=== PATIENT | female | born 1975 | race Caucasian/White ===

== ENCOUNTER → 2017-10-18 07:51 | Day surgery (SDC) | payer MEDICAID, SELFPAY ==
[2017-10-17 12:31] VITALS: BMI 30.4
--- NOTE | 2017-10-18 08:15 | PCM.HP.BLA ---
Problem List (1) Abnormal stress test Status: Acute History and Physical Date of Admission: 10/18/17 Date: 10/18/2017 Update: History of Present Illness Update / Addendum: Pre Cardiac Catheterization For history of present illness, past medical history, family history, social history, review of systems, physical examination, and initial impression and plan, please see the previously dictated outpatient history of present illness by nAdrés Lind M.D., from 10/04/2017. The patient has undergone evaluation with an exercise tolerance test / nuclear imaging study. According to the report an area of myocardial ischemia cannot be excluded. Thus, based upon the patient's history and objective findings, she has been referred for further evaluation with diagnostic cardiac catheterization. The procedure and risks were discussed with her and she grants consent. The cardiac catheterization procedure is scheduled to be performed at [facility] on 10/18/2017. This note was generated with [employer] Dictation software. Every effort was made to ensure accuracy, however, computerized modern and contemporary art curator mistakes may persist.
--- NOTE | 2017-10-18 08:19 | HP.PCM_ITS ---
Problem List (1) Abnormal stress test Status: Acute History and Physical Date of Admission: 10/18/17 Date: 10/18/2017 Update: History of Present Illness Update / Addendum: Pre Cardiac Catheterization For history of present illness, past medical history, family history, social history, review of systems, physical examination, and initial impression and plan, please see the previously dictated outpatient history of present illness by Andrés Lind M.D., from 10/04/2017. The patient has undergone evaluation with an exercise tolerance test / nuclear imaging study. According to the report an area of myocardial ischemia cannot be excluded. Thus, based upon the patient's history and objective findings, she has been referred for further evaluation with diagnostic cardiac catheterization. The procedure and risks were discussed with her and she grants consent. The cardiac catheterization procedure is scheduled to be performed at [facility] on 02/2018. This note was generated with [employer] Dictation software. Every effort was made to ensure accuracy, however, computerized clinical staff rn mistakes may persist.
--- NOTE | 2017-10-19 10:49 | CL.D_ITS ---
Patient Name: THUY DELCID Study Date: 10/18/2017 Performing: Jarad Leach MD Ht: 64.17 inches 163 cm : 1975 Wt: 176.37 lbs 80 kg Age: 42 Gender: female BSA: 1.86 PROCEDURE(S) PERFORMED SO87-ESX/COR/LV CLINICAL PROFILE AND INDICATIONS INDICATIONS: Shortness of Breath Stress/Imaging Stress Test w/SPECT MPI: Yes Result: IndeterminantStress Test with SPECT MPI: Inde terminant Angina Classification Anginal Classification w/in 2 Weeks: CCS III CAD Presentations: Other: Shortness of Breath CONCLUSIONS Elevated Left Ventricular End Diastolic Pressure Normal LV size, wall motion,and systolic function LVEF: by LV gram 60 % Normal coronary arteries Cardiac Rhythm: sinus rhythm with intermittent narrow QRS and intermittent wide QRS appearing c/w a r ate related bundle branch block phenomenon RECOMMENDATIONS Risk factor modification Medical therapy Follow up with primary employee relations representative (Andrés Lind MD) DESCRIPTION OF PROCEDURE The patient arrived to the procedure lab. The risks and benefits of the procedure as well as a full d escription of our services here and current unavailability of surgical backup were fully explained to the patient and/or their significant other prior to the catheterization. The Timeout was completed, verifying the correct patient and procedure. The patient's procedural site was prepped and draped in the usual fashion. Local anesthetic was given subcutaneously to right groin region with Lidocaine 2%. Using a modified Seldinger technique, arterial access was obtained via the right femoral artery, a 4 Fr sheath was inserted Left Coronary Artery selective angiography was performed in multiple views us ing a 4 Fr. JL5 catheter. Right Coronary Artery selective angiography was then performed in multiple views using a 4 Fr. 3DRC catheter. Left Ventriculography was performed in BAILON projection using a 4 Fr . Pigtail catheter. LV to AO pullback pressures were then recorded.The arterial sheath was pulled and manual compression applied until hemostasis is achieved. CORONARY ANGIOGRAPHY DOMINANCE: Co- Dominant LEFT HEART ASSESSMENT Left Ventricular Ejection Fraction: by LV Gram 60 % Normal LV wall motion Elevated Left Ventricular End Diastolic Pressure LVEDP: 20 mmHg LEFT MAIN: Angiographically normal LEFT ANTERIOR DECENDING ARTERY: Angiographically normal CIRCUMFLEX ARTERY: Angiographically normal RIGHT CORONARY ARTERY: Angiographically normal VALVE FINDINGS: Normal Aortic Valve function Normal Mitral Valve function AORTIC ROOT: Angiographically normal COMPLICATIONS No Complications PROCEDURE MEDICATIONS Versed 1 mg IV Versed 1 mg IV Baby Aspirin (81mg) 4 Tabs PO @ 10/18/2017 08:33:42 SUMMARY OF HEMODYNAMIC DATA Time AIR REST ECG 08:32:36 AO 116/81 (97) SA 09:34:01 LV 133/6, 26 09:40:03 LV 131/3, 20 09:40:11 LV 126/4, 21 09:41:06 LVp 130/4, 23 09:41:12 AOp 133/82 (104) 09:41:17 ECG 09:42:18 ECG 10:03:09 Signed By Jarad Leach MD On 10/18/2017 10:12:33 Jarad Leach MD
== END ==
PROVIDERS: Family Provider Family Medicine; PCP Family Medicine; Visit Provider Internal Medicine Cardiovascular Disease
DX: R94.39 Abnormal result of other cardiovascular function study (principal); I44.7 Left bundle-branch block, unspecified; I42.9 Cardiomyopathy, unspecified; Z72.0 Tobacco use; Z82.49 Family history of ischemic heart disease and other diseases of the circulatory system
CPT/HCPCS: 93458; 99152; 99153; J7040; C1769; C1894; Q9967

== ENCOUNTER 2022-09-24 10:05 | Emergency (ER) | payer SELFPAY ==
[2022-09-24 10:07] VITALS: BP 130/71; PULSE 95; RESP 17; TEMP 36.6; O2SAT 99; BMI 30.1
--- NOTE | 2022-09-24 10:38 | EDS_ITS ---
HPI History of Present Illness Chief Complaint: Abscess Informant: patient Onset/Context/Timing Onset: Days (4) Context: Gradual Onset Timing: Continuous Quality: Throbbing Location: Left posterior earlobe Worsened by: Palpation Relieved by: Heat Narrative Narrative: Patient presents with an abscess to her left earlobe that has been getting worse over the last 4 days. Patient states she was prescribed doxycycline. Patient states this is not helping. Patient describes her pain as throbbing. Patient states it is constant. Patient states it is worse whenever she touches the area. Patient denies any discharge or drainage. Patient denies any fevers or chills. Patient has a headache due to the abscess. Prior similar symptoms: Yes PFSH [facility] Medical History (Updated 09/24/22 @ 12:[address] Dimitris Eaton, DO) Bartholin's gland abscess Home Medications albuterol sulfate 90 mcg/actuation aerosol inhaler (ProAir HFA) 2 puff inhalation Q6H 10/11/17 [History Last Taken Unknown] amitriptyline 25 mg tablet 25 mg PO QHS PRN Headache 10/11/17 [History Last Taken Unknown] pzvtqnl-hqwolpobdvdzu-atcbipyb 250 mg-250 mg-65 mg tablet (Excedrin Extra Strength) 2 tab PO Q6H PRN Headache 10/11/17 [History Last Taken Unknown] atorvastatin 20 mg tablet 20 mg PO QDAY 10/11/17 [History Last Taken Unknown] ciprofloxacin HCl 0.3 % eye drops 1 drp ophthalmic (eye) Q6H 10/11/17 [History Last Taken Unknown] clopidogrel 75 mg tablet 75 mg PO QDAY #30 tabs 10/11/17 [Rx Last Taken 10/18/17] ibuprofen 200 mg tablet 200 mg PO 5X/DAY 10/11/17 [History Last Taken Unknown] pregabalin 50 mg capsule (Lyrica) 75 mg PO TID 10/11/17 [History Last Taken Unknown] benzonatate 200 mg capsule 200 mg PO TID PRN PRN Cough 10/17/17 [History Last Taken Unknown] loratadine 10 mg capsule 10 mg PO DAILY 10/17/17 [History Last Taken Unknown] meloxicam 15 mg tablet 15 mg PO DAILY 10/17/17 [History Last Taken Unknown] Allergy/AdvReac Type Severity Reaction Status Date / Time No Known Allergies Allergy Verified 09/24/22 10:06 Surgical History History of hysterectomy Hx of tonsillectomy Social History Smoking Status: Former smoker ROS ROS ED Constitutional Constitutional ED: Denies chills or fever(s) Eyes Eyes: Denies blurry vision or change in vision ENT ENT ED: Reports ear pain left; Denies rhinorrhea or sore throat Cardiovascular Cardiovascular: Denies chest pain or palpitations Respiratory/Chest Respiratory/Chest: Denies cough or dyspnea Gastrointestinal Gastrointestinal: Reports nausea; Denies vomiting Genitourinary Genitourinary ED: Denies dysuria or hematuria Musculoskeletal Musculoskeletal: Denies back pain or neck pain Integumentary Reports abscess; Denies rash Neurologic Neurologic: Reports headache(s); Denies weakness Allergic/Immunologic Allergic/Immunologic ED: Denies mouth swelling or urticaria EXAM Physical Exam Const Vital Signs: 09/24/22 10:07 Temperature 97.9 F Temperature Source Temporal Pulse Rate 95 Respiratory Rate 17 Blood Pressure 130/71 H Blood Pressure Mean 90 Pulse Ox 99 Oxygen Delivery Method Room Air Positive well nourished and well developed General Appearance ED: well developed and NAD HEENT Reports moist mucous membranes HEENT Narrative: There is a tender fluctuant abscess over the posterior aspect of the left ear lobe. There is no active discharge or drainage. There is some mild overlying erythema. There is no warmth noted. There is no tenderness over the mastoid. Neck is supple. Trachea is midline. There is no JVD or lymphadenopathy appreciated. Neck no lymphadenopathy, supple and no JVD Neuro oriented x3, CN's II-XII intact bilaterally and no sensory deficits noted Sensorium / Orientation: alert Motor Exam: strength 5/5 throughout Psych mental status grossly normal MDM MDM MDM Narrative Medical decision making narrative: I explained the procedure to the patient. Patient states she has had this done in the past. Patient was familiar with the procedure. Patient was given the opportunity ask questions. Patient had no questions. Informed and written consent was obtained. The area was cleaned with chlorhexidine prep. The area was anesthetized with 1% plain lidocaine locally. A small linear incision was made using an 11 blade scalpel. A large amount of purulent drainage was expressed. The wound was left open. Bacitracin dressing was applied. Patient tolerated the procedure well. Patient was instructed to use warm compresses. James hernandez is currently on doxycycline. Patient was instructed to continue this until it is gone. Patient was instructed to follow-up with her primary care physician in 5 to 7 days. Patient understood and was agreeable with the plan. All questions were answered. Discharge Plan Triage Chief Complaint: Abscess ED Provider: Dimitris Eaton Dx/Rx/DC Orders Clinical Impression: Abscess of left earlobe Instructions: ED Abscess Incision And Drainage Prescriptions: No Action atorvastatin 20 mg tablet 20 mg PO QDAY pregabalin [Lyrica] 50 mg capsule 75 mg PO TID xicenvi-wrxypeffewlsa-gmakxait [Excedrin Extra Strength] 250-250-65 mg tablet 2 tab PO Q6H PRN (Reason: Headache) albuterol sulfate [ProAir HFA] 90 mcg/actuation HFA aerosol inhaler 2 puff INHALATION Q6H ibuprofen 200 mg tablet 200 mg PO 5X/DAY ciprofloxacin HCl 0.3 % drops 1 drp OPHTHALMIC Q6H amitriptyline 25 mg tablet 25 mg PO QHS PRN (Reason: Headache) clopidogrel 75 mg tablet 75 mg PO QDAY Qty: 30 3RF benzonatate 200 MG capsule 200 mg PO TID PRN PRN (Reason: Cough) meloxicam 15 MG tablet 15 mg PO DAILY loratadine 10 MG capsule 10 mg PO DAILY Primary Care Provider: Care Physician,No Primary Referrals: Care Physician,No Primary [Primary Care Provider] - Doctor,Your [Non-Staff] - 5-7 Days Disposition Disposition: Home, Self Care
[2022-09-24] MEDS: Lidocaine 1% (20 ml mdv) 20 ML Vial INFILT (12:17)
--- NOTE | 2022-09-24 12:55 | CM.ED ---
SW Note Referral Source: Case Find Referral Reason: No PCP, No insurance SW met with patient and introduced herself and role as [facility] Data Security Coordinator. SW inquired about patient's current insurance as well as interest in Medicaid application. Patient reported she made less than [phone] last year and needs the application. SW also provided patient with Where and When to Go Information, local PCPs with [facility] and as well as the [facility] resource list. Patient was receptive towards information and stated she was appreciative of the resources provided. No other needs voiced at this time, SW remains available if needs arise. Key Purvis PIN PUSHER, VIVIANE
== END 2022-09-24 12:58 | disposition home or self-care (01) ==
PROVIDERS: Emergency Provider Emergency Medicine; Visit Provider Emergency Medicine
DX: H60.02 Abscess of left external ear (principal); Z87.891 Personal history of nicotine dependence
CPT/HCPCS: 10060; 69000; 99282

== ENCOUNTER 2024-10-23 13:21 | Emergency (ER) | payer MEDICAID, SELFPAY ==
[2024-10-23 13:22] VITALS: BP 149/97; PULSE 86; RESP 16; TEMP 36.6; O2SAT 100; BMI 33.0
--- NOTE | 2024-10-23 14:35 | EKG12_ITS ---
Test Reason : HYPOTENSION Blood Pressure : */* mmHG Vent. Rate : 68 BPM Atrial Rate : 68 BPM P-R Int : 136 ms QRS Dur : 134 ms QT Int : 444 ms P-R-T Axes : 37 -8 78 degrees QTcB Int : 472 ms Normal sinus rhythm Possible Left atrial enlargement Left bundle branch block Abnormal ECG Confirmed by Thee Schrader ([id number]), restaurant expeditor JULIAN MARTIN ([id number]) on 10/24/2024 11:23:54 AM Referred By: Confirmed By: Thee Schrader
[2024-10-23 15:08] LABS: Bacteria 0 SEEN /hpf (None Seen); Mucous, Urine 0 SEEN /hpf (<or=2+); Squamous Epithelial Cells - UA 0 SEEN /hpf (5-10); White Blood Cells 0 SEEN /hpf (0-5)
[2024-10-23 15:14] LABS: Color, Urine Yellow (Yellow); Glucose, Dipstick Normal (Normal); Ketone-Dipstick Negative (Negative); Leukocyte Esterase-Dipstick Negative /ul (Negative); Nitrite-Dipstick Negative (Negative); Occult Blood-Urine Negative /ul (Negative); Protein-Dipstick Negative (Negative); Urine Bilirubin Dipstick Negative (Negative); Urine Clarity Sl. Cloudy (Clear); Urine Urobilinogen Normal (Normal)
--- NOTE | 2024-10-23 15:28 | EDS_ITS ---
HPI History of Present Illness Chief Complaint: Hypertension Detail of Chief Complaint: Elevated blood pressure as high as 168/100. Informant: patient Onset/Context/Timing Onset: Days Context: - (Patient has not seen a physician in 5 years. She checked her pressure because she felt lightheaded and visual changes) Timing: Intermittent Quality: Blood pressure systolic has varied between 140 and 170. Location: Cardiovascular Current Severity: Mild Maximum Severity: Mild Worsened by: Nothing Relieved by: Nothing Associated Symptoms Associated Symptoms: Episodes of lightheadedness when patient has visual marinelli ges. Narrative Narrative: Patient is a 49-year-old woman. She is on no medication. Her medication list from years ago indicates that she was on an antidepressant, a statin, Plavix and NSAID. She states she has not seen a doctor in 5 years. She had a blood pressure checked in 5 years. She is concerned because is elevated. She denies headache. She denies double vision loss of vision. She has had this intermittent bilateral blurred vision. She denies trouble with speech or swallowing. She denies paresthesia, anesthesia or motor weakness upper lower 20. Denies problems with balance or coordination. She denies problems with fine motor skills. She denies cardiac or respiratory symptoms. She denies GI symptoms. She has no urologic symptoms. Prior similar symptoms: No Recent Illness/Hospitalization: No [facility] Medical History Bartholin's gland abscess Home Medications ?Medication ?Instructions ?Recorded ?Last Taken ?Type albuterol sulfate 90 mcg/actuation 2 puff inhalation Q 6H 10/11/17 Unknown History aerosol inhaler (ProAir HFA) amitriptyline 25 mg tablet 25 mg PO QHS PRN Headache 0 10/11/17 Unknown History qbehsln-kdlvywsqekglw-skafbist 250 2 tab PO Q6H PRN He adache 10/11/17 Unknown History mg-250 mg-65 mg tablet (Excedrin Extra Strength) atorvastatin 20 mg tablet 20 mg PO QDAY 10/11/17 Unkno wn History ciprofloxacin HCl 0.3 % eye drops 1 drp ophthalmic (ey e) Q6H 10/11/17 Unknown History clopidogrel 75 mg tablet 75 mg PO QDAY #30 tabs 10/1110/18/17 Rx ibuprofen 200 mg tablet 200 mg PO 5X/DAY 10/11/17 Un known History pregabalin 50 mg capsule (Lyrica) 75 mg PO TID 8 Unknown History benzonatate 200 mg capsule 200 mg PO TID PRN PRN Cough 10/17/17 Unknown History loratadine 10 mg capsule 10 mg PO DAILY 10/17/17 Unkn own History meloxicam 15 mg tablet 15 mg PO DAILY 10/17/17 Unkn own History hydrochlorothiazide 12.5 mg tablet 12.5 mg PO DAILY #3 0 tabs 10/23/24 Unknown Rx Allergy/AdvReac Type Severity Reaction Status Date / Time No Known Allergies Allergy Verified 10/23/24 13:24 Surgical History Hx of tonsillectomy History of hysterectomy Social History Smoking Status: Former smoker ROS ROS ED Constitutional Constitutional ED: Denies chills, fever(s), subjective, sweats or weight loss Eyes Eyes: Reports blurry vision bilateral; Denies change in vision or diplopia ENT ENT ED: Denies ear pain, rhinorrhea or sore throat Cardiovascular Cardiovascular: Denies chest pain, orthopnea, palpitations, paroxysmal nocturnal dyspnea or racing heartbeat Respiratory/Chest Respiratory/Chest: Denies cough, dyspnea, dyspnea on exertion, orthopnea or paroxysmal nocturnal dyspnea Gastrointestinal Gastrointestinal: Denies abdominal pain, nausea or vomiting Genitourinary Genitourinary ED: Denies dysuria, hematuria or urinary frequency Musculoskeletal Musculoskeletal: Denies arthralgias or myalgias Integumentary Denies rash Neurologic Neurologic: Denies headache(s), paresthesias or weakness Hematologic/Lymphatic Hematologic/Lymphatic: Reports systems reviewed and no addt'l complaints, except as documented EXAM Physical Exam Const Vital Signs: 10/23/24 13:22 10/23/24 14:58 10/23/24 16:08 Temperature 98 F Temperature Source Oral Pulse Rate 86 Pulse Rate [Lying] 70 Pulse Rate [Sitting (for 1 minute prior to obtaining)] 73 Pulse Rate [Standing (for 1 minute prior to obtaining)] 76 Respiratory Rate 16 Respiratory Effort Normal Non-Labored Respiratory Pattern Normal Blood Pressure 149/97 H Blood Pressure [Lying] 138/84 H Blood Pressure [Sitting (for 1 minute prior to obtaining)] 158/84 H Blood Pressure [Standing (for 1 minute prior to obtaining)] 146/92 H Blood Pressure Mean 114 Blood Pressure Mean [Lying] 102 Blood Pressure Mean [Sitting (for 1 minute prior to obtaining)] 108 Blood Pressure Mean [Standing (for 1 minute prior to obtaining)] 110 Pulse Ox 100 Oxygen Delivery Method Room Air 10/23/24 16:11 Temperature Temperature Source Pulse Rate 86 Pulse Rate [Lying] Pulse Rate [Sitting (for 1 minute prior to obtaining)] Pulse Rate [Standing (for 1 minute prior to obtaining)] Respiratory Rate Respiratory Effort Respiratory Pattern Blood Pressure 146/92 H Blood Pressure [Lying] Blood Pressure [Sitting (for 1 minute prior to obtaining)] Blood Pressure [Standing (for 1 minute prior to obtaining)] Blood Pressure Mean 110 Blood Pressure Mean [Lying] Blood Pressure Mean [Sitting (for 1 minute prior to obtaining)] Blood Pressure Mean [Standing (for 1 minute prior to obtaining)] Pulse Ox 93 Oxygen Delivery Method Room Air Positive well nourished and well developed Constitutional Narrative: BMI is 33.0. Patient is tanned. General Appearance ED: well developed and NAD; Negative for cyanotic, diaphor etic or pallor HEENT Reports moist mucous membranes HEENT Narrative: Head is atraumatic normocephalic. Ears are normal. Nares are patent. Uvula is midline. No deviation tongue or protrusion. Eyes PERRL and EOMs intact bilaterally Eyes Narrative: There is no nystagmus. General Eye ED: Negative for pale conjunctiva or scleral icterus Neck no lymphadenopathy, supple and no JVD Chest Wall inspection of chest normal and palpation of chest normal Resp normal respiratory effort and clear to auscultation bilaterally Cardio regular rate, regular rhythm, S1 normal heart sound, S2 normal heart sound and no murmurs GI normal to inspection, nondistended, normoactive bowel sounds, non-tender, non-distended and no masses; Negative for hepatosplenomegaly Palpation: soft Back/Spine no CVA tenderness Extremity normal to inspection General Extremety ED: Negative for edema General Extremity: Negative for edema Neuro oriented x3, CN's II-XII intact bilaterally and no sensory deficits noted Neuro Narrative: There is no clonus or Babinski sign noted right or left. There is no dysmetria. Sensorium / Orientation: alert Motor Exam: strength 5/5 throughout Psych mental status grossly normal Skin no rashes or lesions noted, no wounds and skin turgor normal General Skin Exam: Negative for jaundice or pallor MDM MDM MDM Narrative Medical decision making narrative: Since patient has not seen a physician in 5 years. Will obtain blood work to assess for endorgan dysfunction. Obtain BMP to assess BUN/creatinine UA to assess for proteinuria and hematuria. Will observe blood pressure. Patient's history and physical is not consistent with a stroke. History & Record Review Additional record(s) reviewed:: Prior outpatient record (Outpatient nuclear stress test documented by Dr. Leach from October 2017 was reviewed. Also outpatient H&P authored by Baldo Ovalle September 2017 was reviewed.) and Prior labs Lab Data Attestation: I reviewed the patient's lab results. Lab results narrative: Basic metabolic panel is unremarkable. UA is negative. Patient was informed of results. Labs: Laboratory Results - last 24 hr 10/23/24 10/23/24 15:02 15:16 Sodium 140 Potassium 3.9 Chloride 108 H Carbon Dioxide 28.0 Anion Gap 4 L BUN 14 Creatinine 0.92 Estim Creat Clear Calc 76.21 Est GFR (MDRD) Af Amer 84 Est GFR (MDRD) Non-Af 69 BUN/Creatinine Ratio 15.3 Glucose 101 Calcium 9.5 Urine Color Yellow Urine Clarity Sl. Cloudy Urine pH 7.0 Ur Specific [place] 1.010 Urine Protein Negative Urine Glucose (UA) Normal Urine Ketones Negative Urine Occult Blood Negative Urine Nitrite Negative Urine Bilirubin Negative Urine Urobilinogen Normal Ur Leukocyte Esterase Negative Urine WBC 0 SEEN Ur Squamous Epith Cells 0 SEEN Urine Bacteria 0 SEEN Urine Mucus 0 SEEN Treatment and Re-Evaluation :: Since patient has persistent elevated blood pressure she was started on h ydrochlorothiazide. She states she is self-pay. She was referred to the [facility] clinic. Discharge Plan Triage Chief Complaint: Hypertension ED Provider: Michael Godinez Dx/Rx/DC Orders Clinical Impression: Hypertension, Light-headedness, BMI 33.0-33.9,adult Instructions: ED Hypertension New Begin Treatment Prescriptions: New hydrochlorothiazide 12.5 mg tablet 12.5 mg PO DAILY Qty: 30 0RF No Action atorvastatin 20 mg tablet 20 mg PO QDAY pregabalin [Lyrica] 50 mg capsule 75 mg PO TID nioxcsj-ejgizxmyxmiox-iwrfliil [Excedrin Extra Strength] 250-250-65 mg tablet 2 tab PO Q6H PRN (Reason: Headache) albuterol sulfate [ProAir HFA] 90 mcg/actuation HFA aerosol inhaler 2 puff INHALATION Q6H ibuprofen 200 mg tablet 200 mg PO 5X/DAY ciprofloxacin HCl 0.3 % drops 1 drp OPHTHALMIC Q6H amitriptyline 25 mg tablet 25 mg PO QHS PRN (Reason: Headache) clopidogrel 75 mg tablet 75 mg PO QDAY Qty: 30 3RF benzonatate 200 MG capsule 200 mg PO TID PRN PRN (Reason: Cough) meloxicam 15 MG tablet 15 mg PO DAILY loratadine 10 MG capsule 10 mg PO DAILY Primary Care Provider: Care Physician,No Primary Referrals: [facility] [Provider Group] - 1-2 Weeks Care Physician,No Primary [Primary Care Provider] - Print Language: Latvian Disposition Disposition: Home, Self Care
[2024-10-23 15:52] LABS: Anion Gap 4 (5-15); BUN 14 mg/dL (7-18); BUN/Creat Ratio 15.3 RATIO (10-20); Calcium,Total 9.5 mg/dL (8.5-10.1); Chloride 108 mmol/L (98-107); Creatinine, Serum 0.92 mg/dL (0.55-1.02); EST Glomerular Filtration Rate 69 mL/min (>60); Est Glom Filt Rate - Afr Amer 84 mL/min (>60); Estimated Creatinine Clearance 76.21 ml/min; Glucose 101 mg/dL (74-106); Potassium 3.9 mmol/L (3.5-5.1); Sodium Level 140 mmol/L (136-145)
[2024-10-23 16:08] VITALS: BP 138/84; BP 146/92; BP 158/84; PULSE 70; PULSE 73; PULSE 76
[2024-10-23 16:11] VITALS: BP 146/92; PULSE 86; O2SAT 93
[2024-10-23 16:45] VITALS: BP 136/84; PULSE 79; RESP 16; TEMP 36.7; O2SAT 99
[2024-10-23 16:47] LABS: Red Blood Cells-Urine 0 SEEN /hpf (0-5)
== END 2024-10-23 16:47 | disposition home or self-care (01) ==
PROVIDERS: Emergency Provider Emergency Medicine; Visit Provider Emergency Medicine
DX: I10 Essential (primary) hypertension (principal); R42 Dizziness and giddiness; H53.8 Other visual disturbances; Z87.891 Personal history of nicotine dependence
CPT/HCPCS: 80048; 81001; 93005; 99285; A4216

== ENCOUNTER → 2024-11-05 | Outpatient (CLI) | payer MEDICAID, SELFPAY ==
[2024-11-05 15:17] LABS: Absolute Lymphocyte Count 1.77 X10^3/uL (0.83-4.51); Basophil# 0.09 X10^3/uL; Basophil% 1.3 % (0-1); Eosinophil# 0.38 X10^3/uL; Eosinophils% 5.7 % (0-5); Hematocrit 46.2 % (37-47); Hemoglobin 15.4 g/dL (12.0-15.0); Lymphocyte # 1.77 X10^3/ul (0.83-4.51); Lymphocyte % 26.4 % (19-41); Mean Corp Hgb Conc 33.3 g/dL (32-36); Mean Corpuscular Hgb 30.8 pg (27.0-32.0); Mean Corpuscular Volume 92.4 fL (81-99); Mean Platelet Vol. 11.1 fl (6.2-12.0); Monocyte# 0.49 X10^3/uL; Monocyte% 7.3 % (0-10); NRBC Flagged by Analyzer 0 % (0-5); Neutrophil # 3.97 X10^3/uL (2.7-7.7); Neutrophil % 59.2 % (47-70); Platelet Count 308 K/mm3 (150-450); RBC Distribution Width CV 12.7 % (11.6-14.6); RBC Distribution Width SD 42.8 fl (35.1-43.9); White Blood Count 6.7 K/mm3 (4.4-11.0)
[2024-11-05 16:40] LABS: Hemoglobin A1c 5.5 % (3.8-5.6)
[2024-11-05 17:31] LABS: Microalbumin,Random Urine 7.2 mg/L (NO RANGE EST.); Microalbumin:Creatinine Ratio 8.5 mg/g CRE (<30 mg/g CRE)
[2024-11-05 19:24] LABS: AST(SGOT) 22 U/L (15-37); Alanine Aminotransfer ALT/SGPT 41 U/L (13-56); Albumin, Serum 3.7 g/dL (3.2-5.0); Alkaline Phosphatase 91 U/L (45-117); Anion Gap 7 (5-15); BUN 18 mg/dL (7-18); BUN/Creat Ratio 20.8 RATIO (10-20); Calcium,Total 9.6 mg/dL (8.5-10.1); Chloride 102 mmol/L (98-107); Cholesterol 271 mg/dL (200); Creatinine, Serum 0.87 mg/dL (0.55-1.02); EST Glomerular Filtration Rate 74 mL/min (>60); Est Glom Filt Rate - Afr Amer 89 mL/min (>60); Globulin 3.6 g/dL (2.2-4.2); Glucose 88 mg/dL (74-106); High Density Lipoprotein 59 mg/dL; Potassium 3.9 mmol/L (3.5-5.1); Protein, Total 7.3 g/dL (6.4-8.2); Sodium Level 138 mmol/L (136-145); Triglycerides 333 mg/dL; Very Low Density Lipoprotein 67 mg/dL (5-40)
== END | disposition home or self-care (01) ==
PROVIDERS: PCP Family Medicine; Referring Provider Family Medicine; Visit Provider Family Medicine
DX: I10 Essential (primary) hypertension (principal)
CPT/HCPCS: 36415; 80053; 80061; 82043; 82570; 83036; 84443; 85025

== ENCOUNTER → 2024-11-16 | Outpatient (CLI) | payer MEDICAID, SELFPAY ==
--- NOTE | 2024-11-16 12:35 | BI_ITS ---
PROCEDURE: SCRN MAMM (CAD)W/CAREY BILAT REASON FOR EXAM: F, Age 49 y/o, presents for annual screening mammogram. No family history of breast cancer. TECHNIQUE: Bilateral screening digital breast tomosynthesis with 2D and 3D images. Computer aided detection. COMPARISON: No priors available. FINDINGS: There are scattered areas of fibroglandular density. No suspicious masses, areas of developing architectural distortion, or suspicious calcifications. BI/SCRN MAMM (CAD)W/CAREY BILAT IMPRESSION: There is no mammographic evidence of malignancy. BI-RADS 1: NEGATIVE. RECOMMEND ANNUAL MAMMOGRAPHIC SCREENING. Follow-up code: Routine Follow-up The patient will be notified of the results by letter. Reading Location: [id number]
== END | disposition home or self-care (01) ==
LOC: OPBI 12:27
PROVIDERS: PCP Family Medicine; Referring Provider Family Medicine; Visit Provider Family Medicine
DX: Z12.31 Encounter for screening mammogram for malignant neoplasm of breast (principal)
CPT/HCPCS: 77063; 77067

== ENCOUNTER 2025-02-22 07:14 | Day surgery (SDC) | payer MEDICAID, SELFPAY ==
--- NOTE | 2025-02-21 11:12 | PAT.ANESEVAL ---
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 When Was Last Pacemaker Check QUESTION #4 FULL TEXT: You/Your Family Experience fever (hyperthermia) with Anesthesia Last Oral Intake Last Oral intake: Last Oral Intake NPO since Meds taken in AM with sips of water? Meds patient instructed to take am of surgery PONV PONV - adjunct psychology faculty member: PONV - adjunct psychology faculty member Female Yes 02/21/25 08:58 HX of Motion Sickness No 02/21/25 08:58 HX of N/V After Surgery Yes 02/21/25 08:58 Non-Smoker No 02/21/25 08:58 Duration of Surgery greater No 02/21/25 08:58 than 60 minutes Number of Risk Factors 2 02/21/25 08:58 PONV Score Moderate Risk 02/21/25 08:58 Height & Weight Height & Weight: Anesthesia: Height & Weight Height 5 ft 3 in 12/28/24 14:20 Respiratory Assessment Respiratory Assessment - adjunct psychology faculty member: Respiratory Tract Infection Hx - adjunct psychology faculty member Hx Respiratory Tract Infection No 02/21/25 08:58 STOP Sleep Apnea STOP Sleep Apnea - adjunct psychology faculty member: STOP Sleep Apnea - adjunct psychology faculty member Hx Hypertension Yes: CONTROLLED WITH MEDS 02/21/25 08:58 Hx Sleep Apnea No 02/21/25 08:58 CPAP BIPAP Do you snore loudly (louder Yes 02/21/25 08:58 than talking or can be heard Do you often feel tired/ No 02/21/25 08:58 fatigued/ sleepy during daytime? Has anyone observed you stop No 02/21/25 08:58 breathing during sleep? STOP Results Positive 02/21/25 08:58 QUESTION #5 FULL TEXT : Do you snore loudly (louder than talking or can be heard through closed doors)? 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 Specify any problems Hx of Preganancy in last 3 No 02/21/25 08:58 Months Nurse Filling Out Transfusion [email or web address] 02/21/25 08:58 & Questions: Date: 02/21/25 02/21/25 08:58 Time: 08:59 02/21/25 08:58 Patient unable to answer at this time (ie. confused, unrespo /Reproduction History /Reproductive History - adjunct psychology faculty member: /Reproductive Hx- adjunct psychology faculty member Hx Now No 02/21/25 08:58 Gestational Age (in weeks): EDC: Hx Hx Para Hx Section SAB No 02/21/25 08:58 PFSH Medical History (Updated 02/21/25 @ 09:05 by Andi Joseph) Wears glasses Wears dentures Depression Cancer Migraine headache History of echocardiogram History of stress test Cardiology follow-up encounter Environmental allergies Left bundle branch block Bartholin's gland abscess Home Medications ?Medication ?Instructions ?Recorded ?Last Taken ?Type hydrochlorothiazide 12.5 mg tablet 12.5 mg PO DAILY #30 tabs 10/23/24 Unknown Rx cetirizine 10 mg tablet (Zyrtec) 10 mg PO QDAY PRN allergy symptoms 12/28/24 Unknown History acetaminophen 500 mg capsule 1,000 mg PO Q8H PRN PRN pain 02/21/25 Unknown History Allergy/AdvReac Type Severity Reaction Status Date / Time No Known Allergies Allergy Verified 02/21/25 08:56 Family History (Updated 12/28/24 @ 14:20 by Odalys Moreland) Mother Asthma Bleeding disorder CVA (cerebral vascular accident) Father Cancer prostate CVA (cerebral vascular accident) Sister Thyroid disorder Surgical History S/P right heart catheterization S/P knee surgery History of surgical removal of Bartholin’s gland cyst H/O tubal ligation Hx of tonsillectomy History of hysterectomy Social History (Updated 12/28/24 @ 14:20 by Odalys Moreland) Smoking Status: Current every day smoker tobacco type: e-cigarettes alcohol intake: current Audit: Pertinent Findings Pertinent Findings EKG Perinent findings: 10/23/2024. Normal sinus rhythm 60 bpm. Left bundle branch block. Heart catheterization pertinent findings: 10/18/2017. EF 60%. Normal coronary arteries. Recommendation Anesthesia Recommendation Anesthesia recommendation: OPTIMIZED for anesthesia
[2025-02-22] VITALS (7 sets, daily range): BP systolic 88–104; BP diastolic 57–81; PULSE 57–71; RESP 16; TEMP 36.1–36.3; O2SAT 99–100; BMI 33.2
--- NOTE | 2025-02-22 07:21 | PCM.PRE.AN2 ---
ASA Classification* ASA Classification ASA Classification: 2 Assessment & Plan Anesthesia* Anesthesia Assessment Anesthesia Assessment: Discussed sedation and/or anesthesia options, risks, benefits, and alternatives with patient/parents/legal guardian/POA. Questions invited. The patient/parents/legal guardian/POA seems to understand and agrees to proceed with anesthesia plan. Reviewed the physical assessment, medical history, allergy history and patient home medications list prior to surgery/procedure/anesthetic and documented any changes. Performed airway and anesthesia risk assessments. Anesthesia Type Anesthesia Type: MAC Anesthesia Focused Assessment* Airway Assessment Mouth opens: >3 cm Mallampati Score: II Labs Anesthesia Preop lab: CBC WBC 6.7 K/mm3 (4.4-11.0) 11/05/24 11:11/05/24 RBC 5.00 M/mm3 (4.2-5.4) 11/05/24 11:11/05/24 Hgb 15.4 g/dL (12.0-15.0) H 11/05/24 11:11/05/24 Hct 46.2 % (37-47) 11/05/24 11:11/05/24 Plt Count 308 K/mm3 (150-450) 11/05/24 11:11/05/24 CHEMISTRY Potassium 3.9 mmol/L (3.5-5.1) 11/05/24 11:11/05/24 Sodium 138 mmol/L (136-145) 11/05/24 11:11/05/24 Magnesium 1.8 mg/dL (1.8-2.4) 05/04/16 07:04 05/04/16 BUN 18 mg/dL (7-18) 11/05/24 11:11/05/24 Creatinine 0.87 mg/dL (0.55-1.02) 11/05/24 11:11/05/24 Glucose 88 mg/dL (74-106) 11/05/24 11:11/05/24 TSH 1.590 uIU/mL (0.358-3.740) 11/05/24 11:11/05/24 COAG Pre-Assessment Diagnosis/Proposed Procedure Planned Operative Procedure(s): COLONOSCOPY Anesthesia History Anesthesia 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 When Was Last Pacemaker Check QUESTION #4 FULL TEXT: You/Your Family Experience fever (hyperthermia) with Anesthesia Last Oral Intake Last Oral intake: Last Oral Intake NPO since Meds taken in AM with sips of water? Meds patient instructed to take am of surgery PONV PONV - card grader: PONV - card grader Female Yes 02/21/25 08:58 HX of Motion Sickness No 02/21/25 08:58 HX of N/V After Surgery Yes 02/21/25 08:58 Non-Smoker No 02/21/25 08:58 Duration of Surgery greater No 02/21/25 08:58 than 60 minutes Number of Risk Factors 2 02/21/25 08:58 PONV Score Moderate Risk 02/21/25 08:58 Height & Weight Height & Weight: Anesthesia: Height & Weight Height 5 ft 3 in 12/28/24 14:20 Respiratory Assessment Respiratory Assessment - card grader: Respiratory Tract Infection Hx - card grader Hx Respiratory Tract Infection No 02/21/25 08:58 STOP Sleep Apnea STOP Sleep Apnea - card grader: STOP Sleep Apnea - card grader Hx Hypertension Yes: CONTROLLED WITH MEDS 02/21/25 08:58 Hx Sleep Apnea No 02/21/25 08:58 CPAP BIPAP Do you snore loudly (louder Yes 02/21/25 08:58 than talking or can be heard Do you often feel tired/ No 02/21/25 08:58 fatigued/ sleepy during daytime? Has anyone observed you stop No 02/21/25 08:58 breathing during sleep? STOP Results Positive 02/21/25 08:58 QUESTION #5 FULL TEXT : Do you snore loudly (louder than talking or can be heard through closed doors)? 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 Specify any problems Hx of Preganancy in last 3 No 02/21/25 08:58 Months Nurse Filling Out Transfusion [email or web address] 02/21/25 08:58 & Questions: Date: 02/21/25 02/21/25 08:58 Time: 08:59 02/21/25 08:58 Patient unable to answer at this time (ie. confused, unrespo /Reproduction History /Reproductive History - card grader: /Reproductive Hx- card grader Hx Now No 02/21/25 08:58 Gestational Age (in weeks): EDC: Hx Hx Para Hx Section SAB No 02/21/25 08:58 Active Medications Active Medications: Current Medications Generic Name Dose Route Start Last Admin Trade Name Freq PRN Reason Stop Dose Admin Lactated Ringer's 1,000 mls @ 15 mls/hr 02/22/25 07:30 IV .Q48H OMAR PFSH Medical History Wears glasses Wears dentures Depression Cancer Migraine headache History of echocardiogram History of stress test Cardiology follow-up encounter Environmental allergies Left bundle branch block Bartholin's gland abscess Home Medications ?Medication ?Instructions ?Recorded ?Last Taken ?Type hydrochlorothiazide 12.5 mg tablet 12.5 mg PO DAILY #30 tabs 10/23/24 Unknown Rx cetirizine 10 mg tablet (Zyrtec) 10 mg PO QDAY PRN allergy symptoms 12/28/24 Unknown History acetaminophen 500 mg capsule 1,000 mg PO Q8H PRN PRN pain 02/21/25 Unknown History Allergy/AdvReac Type Severity Reaction Status Date / Time No Known Allergies Allergy Verified 02/21/25 08:56 Family History Mother Asthma Bleeding disorder CVA (cerebral vascular accident) Father Cancer prostate CVA (cerebral vascular accident) Sister Thyroid disorder Surgical History S/P right heart catheterization S/P knee surgery History of surgical removal of Bartholin’s gland cyst H/O tubal ligation Hx of tonsillectomy History of hysterectomy Social History Smoking Status: Current every day smoker tobacco type: e-cigarettes alcohol intake: current Review of Systems (Anesthesia) ROS Narrative System reviewed and no additional complaints, except as documented.
--- OUTSIDE RECORDS SUMMARY | 2025-02-22 07:32 | XMS RPT_ITS | CCD ---
Author Organization [facility] Care Team Providers Care Field Sales Representative Name Role Phone KRUPA, CK E Unavailable Unavailable KRUPA, CK E Unavailable Unavailable KRUPA, CK E Unavailable Unavailable KRUPA, CK E Unavailable Unavailable KRUPA, CK E Unavailable Unavailable KRUPA, CK E Unavailable Unavailable KRUPA, CK Unavailable Unavailable IMCA Unavailable Unavailable KRUPA, CK Unavailable Unavailable KRUPA, CK Unavailable Unavailable CEBUL, BALDO Unavailable Unavailable KRUPA, CK Unavailable Unavailable KRUPA, CK Unavailable Unavailable KRUPA, CK Unavailable Unavailable IMCA Unavailable Unavailable CEBUL, BALDO Unavailable Unavailable CEBUL, BALDO Unavailable Unavailable KRUPA, CK Unavailable Unavailable KRUPA, CK Unavailable Unavailable Unavailable Primary Care Provider Unavailabl e Care Physician, No Primary Primary Care Provider Unavailable Dr. Michael Godinez MD Attending Provider Dr. Michael Godinez MD Emergency Provider [phone] Evette DO, Mandie Primary Care Provider Evette DO, Mandie Attending Provider Evette DO, Mandie Referring Provider [phone] Evette VSC, Mandie Referring Unavailable Evette VSC, Mandie Attending Unavailable Evette VSC, Mandie Primary Care Unavailable Michael Godinez Attending Unavailable Care Physician, No Primary Primary Care Unava ilable Candelaria Pendleton Attending Unavailable Evette VSC, Mandie Primary Care Unavailable Evette VSC, Mandie Referring Unavailable Candelaria Pendleton Attending Unavailable Evette VSC, Mandie Primary Care Unavailable Evette VSC, Mandie Referring Unavailable Evette VSC, Mandie Attending Unavailable Mandie Álvarez Primary Care Unavailable Medications Current Medications Medication Drug Class(es) Dates Sig (Normalized) Sig (Original) acetaminophen 250 mg / aspirin 250 mg / caffeine 65 mg oral tablet (3 sources) Platelet Aggregation Inhibitor, Nonsteroidal Anti-inflammatory Drug, Central Nervous System Stimulant, Methylxanthine Start: 10-11-19 18 Aspirin-Acetaminophen- Caffeine (Excedrin Extra Strength) 250-250-65 mg tablet Active 2 {tbl} PO EVERY 6 HOURS as needed for Headache October 11, 2017 1:00am Comment on above: Take 2 tablets by mo [facility] every 6 hours as needed. amitriptyline hydrochloride 25 mg oral tablet (3 sources) Tricyclic Antidepressant Start: 12-01-19 17 take 1 tablet by mouth at bedtime as needed for headache Amitriptyline 25 mg tablet Active 25 mg PO AT BEDTIME as needed for Headache October 11, 2017 1:00am atorvastatin 20 mg oral tablet (3 sources) HMG-CoA Reductase Inhibitor Start: 09-23-19 18 take 1 tablet by mouth once daily Atorvastatin 20 mg tablet Active 20 mg PO daily October 11, 2017 1:00am Comment on above: Take 1 tablet by dustin once daily. ciprofloxacin 3 mg/ml ophthalmic solution (2 sources) Quinolone Antimicrobial Start: 10-11-19 18 Ciprofloxacin Hcl 0.3 % drops Active 1 NMA OPHTHALMIC EVERY 6 HOURS October 11, 2017 1:00am clopidogrel 75 mg oral tablet (4 sources) P2Y12 Platelet Inhibitor Start: 10-10-19 End: 10-11-19 18 take 1 tablet by mouth once daily Clopidogrel 75 mg tablet Active 75 mg PO daily October 11, 2017 11:39am doxycycline monohydrate 100 mg oral tablet (1 source) Tetracycline-clas s Drug Start: 09-21-19 23 End: 09-28-19 23 take 1 tablet by mouth twice daily doxycycline monohydrate 100 mg tablet Take 1 tablet by mouth twice daily for 7 days. 14 tablet 0 09/21/2022 09/28/2022 Active Comment on above: Take 1 tablet by dustin twice daily for 7 days. hydroCHLOROthiazide 12.5 mg oral tablet (1 source) Thiazide Diuretic Start: 10-23-19 25 take 1 tablet by mouth once daily Hydrochlorothiazide 12.5 mg tablet Active 12.5 mg PO DAILY October 23, 2024 1:00am ibuprofen 200 mg oral tablet (3 sources) Nonsteroidal Anti-inflammatory Drug Start: 10-11-19 take 1 tablet by mouth five times daily Ibuprofen 200 mg tablet Active 200 mg PO 5 TIMES DAILY October 11, 2017 1:00am Comment on above: Take 200 mg by mouth five times daily. loratadine 10 mg oral capsule (5 sources) Start: 10-17-19 18 take 1 capsule by mouth once daily Loratadine 10 MG capsule Active 10 mg PO DAILY October 17, 2017 1:00am Start: 10-01-2013 End: 10-11-2017 take 1 tablet by mouth once daily Loratadine 10 mg tablet Discontinued 10 mg PO daily October 11, 2017 1:00am October 11, 2017 11:30am Comment on above: Take 1 tablet by dustin th once daily. meloxicam 15 mg oral tablet (5 sources) Nonsteroidal Anti-inflammatory Drug Start: 10-17-2017 take 1 tablet by mouth once daily Meloxicam 15 MG tablet Active 15 mg PO DAILY October 17, 2017 1:00am Start: 01-15-2016 End: 10-11-2017 take 1 tablet by mouth once daily Meloxicam 15 mg tablet Discontinued 15 mg PO daily October 11, 2017 1:00am October 11, 2017 11:30am Comment on above: Take 1 tablet by dustin th once daily. Take with food. pregabalin 50 mg oral capsule (4 sources) Start: 10-11-2017 Pregabalin (Lyrica) 50 mg capsule Active 75 mg PO THREE TIMES A DAY October 11, 2017 1:00am take 1 capsule by mouth twice da [place] pregabalin (LYRICA) 75 mg capsule Take 75 mg by mouth twice daily. 0 Active Comment on above: Take 75 mg by mouth twice daily. Take 75 mg by mouth three times daily. Completed/Discontinued Medications Medication Drug Class(es) Dates Sig (Normalized) Sig (Original) acetaminophen 325 mg / oxyCODONE hydrochloride 5 mg oral tablet (2 sources) Opioid Agonist Start: 08-04-2016 End: 10-11-2017 Oxycodone-Acetamino phen 1 TABLET tablet Discontinued 1 - 2 {tbl} PO EVERY 4 HOURS NEEDED as needed for Pain August 04, 2016 1:00am October 11, 2017 11:26am Start: 08-04-2016 End: 10-11-2017 take 1 tablet by mouth every four hours as needed Oxycodone-Acetaminophen Discontinued 1 - 2 TABLET PO EVERY 4 HOURS NEEDED August 04, 2016 12:00am October 11, 2017 10:26am [id number] 200 actuat albuterol 0.09 mg/actuat metered dose inhaler (3 sources) beta2-Adrenergic Agonist Start: 11-15-2019 take 2 puff(s) by inhalation every six hours as needed albuterol HFA (PROAIR HFA) 90 mcg/actuation inhaler Inhale 2 Puffs as instructed every 6 hours as needed. 1 Inhaler 0 11/15/2019 Active Start: 10-11-2017 Albuterol Sulf ate (Proair Hfa) 90 mcg/actuation HFA aerosol inhaler Active 2 NMA INHALATION EVERY 6 HOURS October 11, 2017 1:00am Start: 10-11-2017 take 1 puff(s) by in halation every six hours Albuterol Sulfate (Proair Hfa) 90 mcg/actuation HFA aerosol inhaler Active 2 PUFF INHALATION EVERY 6 HOURS October 11, 2017 12:00am Comment on above: Inhale 2 Puffs as in structed every 6 hours as needed. benzonatate 100 mg oral capsule (6 sources) Non-narcotic Antitussive Start: 0 take 2 capsules by mouth every eight hours as needed benzonatate (TESSALON PERLES) 100 mg capsule Take 2 capsules by mouth three times daily as needed. 30 capsule 0 11/15/2019 Active Start: 10-17-2017 take 1 capsule by mo ut three times daily as needed for cough Benzonatate 200 MG capsule Active 200 mg PO 3 TIMES DAILY NEEDED as needed for Cough October 17, 2017 1:00am Start: 10-11-2017 End: 10-11-2017 take 1 capsule by mouth three times daily as needed Benzonatate 200 mg capsule Discontinued 200 mg PO THREE TIMES A DAY as needed October 11, 2017 1:00am October 11, 2017 11:29am Comment on above: Take 1 capsule by mo ut three times daily as needed. Take 2 capsules by m [facility] three times daily as needed. 24 hr buPROPion hydrochloride 150 mg extended release oral tablet (1 source) Aminoketone Start: 03-20-20 take 1 tablet by mouth once daily in the morning buPROPion XL (WELLBUTRIN XL) 150 mg 24 hr tablet TAKE 1 TABLET BY MOUTH EVERY DAY IN THE MORNING 03/20/2019 Active Comment on above: TAKE 1 TABLET BY DUSTIN TH EVERY DAY IN THE MORNING celecoxib 50 mg oral capsule (3 sources) Nonsteroidal Anti-inflammatory Drug Start: 08-04-20 End: 10-11-19 18 take 1 capsule by mouth once daily Celecoxib 50 MG capsule Discontinued 50 mg PO DAILY August 04, 2016 1:00am October 11, 2017 11:24am CELECOXIB (CELEB LYNNE ORAL) Take by mouth. 0 Active Comment on above: Take by mouth. DULoxetine 60 mg delayed release oral capsule (1 source) Serotonin and Norepinephrine Reuptake Inhibitor take 1 capsule by mouth once daily DULoxetine (CYMBALTA) 60 mg capsule Take 60 mg by mouth once daily. 0 Active Comment on above: Take 60 mg by mouth once daily. folic acid 1 mg oral tablet (1 source) Start: 03-26-20 take 1 tablet by mouth once daily folic acid 1 mg tablet Take 1 mg by mouth once daily. 03/26/2019 Active Comment on above: Take 1 mg by mouth o nce daily. naproxen 500 mg oral tablet (2 sources) Nonsteroidal Anti-inflammatory Drug Start: 08-04-20 End: 10-11-19 18 take 1 tablet by mouth twice daily Naproxen 500 MG tablet Discontinued 500 mg PO TWICE A DAY August 04, 2016 1:00am October 11, 2017 11:25am traZODone hydrochloride 100 mg oral tablet (1 source) Serotonin Reuptake Inhibitor Start: 03-20-20 take 1 tablet by mouth once daily at bedtime traZODone (DESYREL) 100 mg tablet TAKE 1 TABLET BY MOUTH EVERYDAY AT BEDTIME 03/20/2019 Active Comment on above: TAKE 1 TABLET BY DUSTIN TH EVERYDAY AT BEDTIME Problems Active Problems Problem Classification Problem Date Documented Date Episodic/Chronic Anxiety disorders (1 source) Anxiety; Translations: [Anxiety disorder, unspecified] Onset: 09-16-2010 09-16-2010 Chronic Conditions associated with dizziness or vertigo (1 source) Lightheadedness; Translations: [Dizziness and giddiness] 10-31-2024 Episodic Conduction disorders (2 sources) Left bundle-branch block, unspecified; Translations: [Left bundle-branch block, unspecified] Onset: 09-02-2017 Chronic Essential hypertension (2 sources) Hypertensive disorder; Translations: [Essential (primary) hypertension] Onset: 12-12-2024 10-31-2024 Chronic Headache; including migraine (1 source) Tension-type headache; Translations: [Tension-type headache, unspecified, not intractable] Onset: 06-29-2005 06-29-2005 Chronic Nonspecific chest pain (3 sources) Chest pain, unspecified; Translations: [Chest pain] Onset: 10-04-2017 10-06-2017 Episodic Other ear and sense organ disorders (3 sources) Abscess of pinna ; Translations: [Abscess of left external ear] Episodic Other nutritional; endocrine; and metabolic disorders (1 source) Body mass index 30+ - obesity; Translations: [Body mass index (BMI) 33.0-33.9, adult] 10-31-2024 Chronic Unclassified (6 sources) Abnormal result of other cardiovascular function study; Translations: [Mammography abnormal] Onset: 01-29-2010 01-29-2010 Episodic Unclassified (1 source) Other injury of unspecified body region, initial encounter; Translations: [Other injury of unspecified body region, initial encounter] Onset: 11-02-2017 Unclassified (1 source) Unknown / UNK(Unknown) Onset: 09-02-2017 Past or Other Problems Problem Classification Problem Date Documented Da te Episodic/Chronic Inflammatory diseases of female pelvic organs (1 source) Abscess of Bartholin's gland; Translations: [Abscess of Bartholin's gland] Onset: 06-13-2006 06-13-2006 Episodic Residual codes; unclassified (1 source) Tobacco user; Translations: [Tobacco use] Onset: 11-27-2012 11-27-2012 Episodic Spondylosis; intervertebral disc disorders; other back problems (1 source) Cervical radiculopathy; Translations: [Radiculopathy, cervical region] Onset: 11-27-2012 11-27-2012 Episodic Sprains and strains (1 source) Neck sprain; Translations: [Sprain of joints and ligaments of unspecified parts of neck, initial encounter] Onset: 01-18-2011 01-18-2011 Episodic Syncope (1 source) Syncope and collapse; Translations: [Syncope and collapse] Onset: 09-02-2017 Episodic Results Test Name Value Interpretation Reference Range Facility Surgery Visit Reporton 12-28 Surgery Visit Report [facility] [address] [place] [address] OFFICE VISIT Date of Service: 12/28/24 MR#: [id number] Acct: [id number] Name: THUY MICHAEL Rep #: [id number] : 1975 Provider: Dr. Candelaria alfaro MD Age/Sex: 49/F Location: [facility] Status: Signed Intake Vital Signs 10/23/24 13:22 12/28/24 14:20 Height 5 ft 3 in 5 ft 3 in Weight: 189 lb BMI 33.5 BP 145/88 H Blood Pressure Location Rt brachial Position Sitting Respiration 16 Intake Visit Reasons: SCREENING SCOPE Chief Complaint: c-scope Operation Research Analyst Required: No Is patient in pain?: No Allergies No Known Allergies Allergy (Verified 12/28/24 14:21) Medications ???Medication ???Instructions ???Recorded ???Confirmed ???Type hydrochlorothiazide 12.5 mg tablet 12.5 mg PO DAILY #30 tabs Rx cetirizine 10 mg tablet (Zyrtec) 10 mg PO QDAY PRN 12/28/24 5 History Have you fallen in the past year?: No PFSH Medical History (Updated 12/28/24 @ 14:[address] Candelaria Pendleton MD) Environmental allergies Left bundle branch block Bartholin's gland abscess Surgical History (Updated 12/28/24 @ 14:19 by Odalys Moreland) S/P right heart catheterization S/P knee surgery History of surgical removal of Bartholin #[id number];s gland cyst H/O tubal ligation Hx of tonsillectomy History of hysterectomy Family History (Updated 12/28/24 @ 14:20 by Odalys Moreland) Mother Asthma Bleeding disorder CVA (cerebral vascular accident) Father Cancer prostate CVA (cerebral vascular accident) Sister Thyroid disorder Social History (Updated 12/28/24 @ 14:20 by Odalys Moreland) Smoking Status: Former smoker alcohol intake: current HPI HPI HPI: Patient is a 49-year-old female here for colonoscopy for screening purposes. She denies abdominal pain. She does have blood in her stool but she thinks this is due to hemorrhoids. She says that it used to happen sporadically and now it is happening every time she goes to the bathroom. She has never had a colonoscopy. ROS General General: Yes weight change and fatigue; No appetite, colon cancer, breast cancer or weakness HEENT HEENT: No difficulty swallowing, eye injury, eye surgery, swollen glands or hoarseness Endo Endocrine: No thyroid disease, diabetes mellitus, thyroid cancer, Hair loss, heat intolerance or cold intolerance Skin Skin: No rash or changing moles Breast Breast: No left breast lump, right breast lump, nipple discharge, breast pain, abnormal mammogram, abnormal US or breast enlargement Musc Musculoskeletal: Yes arthritis; No back problems, rheumatoid arthritis, gout or joint pain Cardio Cardiovascular: Yes high blood pressure; No murmur, pacemaker, heart disease, atrial fibrillation, heart attack, heart stent, palpitations, shortness of breath with exertion or chest pain Psych Psychiatric: Yes depression and anxiety; No hearing voices Resp Respiratory: Yes shortness of breath, No sleep apnea, No cough, No COPD, No asthma, No emphysema and No wheezing Gastro Gastrointestinal: No abdominal pain, No nausea or vomiting, Yes diarrhea, Yes constipation, No blood in stool, No acid reflux, Yes hemorrhoids, No ulcers, No gallbladder problem and No black,tarry stools Naveed Hematologic: No blood thinners, No blood disorders, No bleeding, No anemia and No blood clots Neuro Neurologic: No system reviewed and no additional complaints, except as documented, No as per HPI, No abnormal gait, No abnormal hearing, No abnormal movements, No abnormal speech, No behavioral ch anges, No burning sensations, No confusion, No convulsions, No disequilibrium, No dizziness, No localized weakness, No frequent falls, No headache(s), No lack of coordination, No loss of vision, No memory loss, Yes numbness, No other visual disturbances, No radicular pain, No restless legs, No sensory deficit, No syncope, Yes tingling, No tremor(s), No weakness and No other Exam Const General: cooperative Orientation: alert and oriented x3 HENMT Head: normal to inspection Neck Neck: normal visual inspection and full ROM Chest Chest palpation inspection: normal inspection of the chest Resp Effort Inspection: normal respiratory effort Auscultation: clear to auscultation bilaterally Cardio Rate: regular rate Rhythm: regular rhythm GI Inspection: non-distended Palpation: soft and nontender Skin General: no rashes or lesions noted Neuro General: patient alert and patient oriented x3 Extrem General: full ROM Psych Appearance: grossly normal Mental Status: mental status grossly normal Assessment and Plan Assessment and Plan (1) Screen for colon cancer: Status: Acute Plan: I explained endoscopy in detail to the patient. I explained t (more content not included)... Normal [facility] Breast imaging reportOrdered By: Jasmyn Arana on 11-20-2024 Study report [facility] Imaging Services [address] [place] [address] SCRN MAMM (CAD)W/CAREY BILAT MR#: [id number] Acct: [id number] Name: THUY MICHAEL Rep #: [id number] : 1975 F 49 From: eLeann Arana MD PCP: Mandie Alas DO Status: REG CLI Study:SCRN MAMM (CAD)W/CAREY BILAT Date of Exa m: 11/16/24 Exam# [id number] Ordering Dr: Raoul Alas [facility] DO PROCEDURE: SCRN MAMM (CAD)W/CAREY BILAT REASON FOR EXAM: F, Age 49 y/o, presents for annual screening mammogram. No family history of breast cancer. TECHNIQUE: Bilateral screening digital breast tomosynthesis with 2D and 3D images. Computeraided detection. COMPARISON: No priors available. FINDINGS: There are scattered areas of fibroglandular density. No suspicious masses, areas of developing architectural distortion, or suspicious calcifications. BI/SCRN MAMM (CAD)W/CAREY BILAT IMPRESSION: There is no mammographic evidence of malignancy. BI-RADS 1: NEGATIVE. RECOMMEND ANNUAL MAMMOGRAPHIC SCREENING. Follow-up code: Routine Follow-up The patient will be notified of the results by letter. Reading Location: [facility] CC: Mandie Alas DO ~ Network Operations Center Engineer: Signed [facility] SCRN MAMM (CAD)W/CAREY BILATo n 11-16-2024 SCRN MAMM (CAD)W/CAREY BILAT [facility] Imaging Services [address] [place] [address] SCRN MAMM (CAD)W/CRAEY BILAT MR#: [id number] Acct: [id number] Name: THUY MICHAEL Rep #: [id number] : 1975 F 49 From: Jasmyn Arana MD PCP: Mandie Alas DO Status: REG CLI Study: SCRN MAMM (CAD)W/CAREY BILAT Date of Exam: 04/05 Exam# [id number] Ordering Dr: Mandie Alas [facility] D O PROCEDURE: SCRN MAMM (CAD)W/CAREY BILAT REASON FOR EXAM: F, Age 49 y/o, presents for annual screening mammogram. No family history of breast cancer. TECHNIQUE: Bilateral screening digital breast tomosynthesis with 2D and 3D images. Computer aided detection. COMPARISON: No priors available. FINDINGS: There are scattered areas of fibroglandular density. No suspicious masses, areas of developing architectural distortion, or suspicious calcifications. BI/SCRN MAMM (CAD)W/CAREY BILAT IMPRESSION: There is no mammographic evidence of malignancy. BI-RADS 1: NEGATIVE. RECOMMEND ANNUAL MAMMOGRAPHIC SCREENING. Follow-up code: Routine Follow-up The patient will be notified of the results by letter. Reading Location: [facility] CC: Mandie Alas DO Network Operations Center Engineer: Signed Normal [facility] Absolute neutrophil countOrd ered By: Mandie Alas on 11-05-2024 Neutrophils (Bld) [#/Vol] 4.0 10*3/uL 2.0-7.7 [facility] Albumin to globulin ratioOrd ered By: Mandie Alas on 11-05-2024 Albumin/Globulin [Mass ratio] 1.0 {ratio} 0.9-2.4 [facility] Basophil percentageOrdered B y: Mandie Lindnger on 11-05-2024 Basophils/100 WBC (Bld) 1.3 % High 0-1 [facility] Bilirubin, totalOrdered By: Mandie Lindnger on 11-05-2024 Bilirubin [Mass/Vol] 0.50 mg/dL 0.20-1.00 [facility] Comment on above: For patients on eltr ombopag therapy, use of Dimension [place] TBIL is not recommended. Blood urea nitrogen (BUN)/cr eatinine ratioOrdered By: Mandie Alas on 11-05-2024 Urea nitrogen/Creatinine [Mass ratio] 20.8 mg/mg High 10-20 [facility] CBC W/Diff, Automatedon 10-14 Absolute Lymph 1.77 X10 3/uL Normal 0.83-4.51 [facility] Comment on above: Performed By: #### L 500.4050, L500.4100, L100.0100, L501.9520, L502.0250, L501.9985 #### [facility] [address] [place], [address] Absolute Neut 4.0 X10 3/uL Normal 2.0-7.7 [facility] Comment on above: Performed By: #### L 500.4050, L500.4100, L100.0100, L501.9520, L502.0250, L501.9985 #### [facility] [address] [place], [address] Basophils/100 WBC (Bld) 1.3 % High 0-1 [facility] Comment on above: Performed By: #### L 500.4050, L500.4100, L100.0100, L501.9520, L502.0250, L501.9985 #### [facility] [address] [place], [address] Eosinophils/100 WBC (Bld) 5.7 % High 0-5 [facility] Comment on above: Performed By: #### L 500.4050, L500.4100, L100.0100, L501.9520, L502.0250, L501.9985 #### [facility] [address] [place], [address] Erythrocyte distribution width (RBC) [Ratio] 12.7 % Normal 11.6-14.6 [facility] Comment on above: Performed By: #### L 500.4050, L500.4100, L100.0100, L501.9520, L502.0250, L501.9985 #### [facility] [address] [place], [address] Hematocrit (Bld) [Volume fraction] 46.2 % Normal 37-47 [facility] Comment on above: Performed By: #### L 500.4050, L500.4100, L100.0100, L501.9520, L502.0250, L501.9985 #### [facility] [address] [place], [address] Hemoglobin (Bld) [Mass/Vol] 15.4 g/dL High 12.0-15.0 [facility] Comment on above: Performed By: #### L 500.4050, L500.4100, L100.0100, L501.9520, L502.0250, L501.9985 #### [facility] [address] [place], [address] IG% 0.100 Normal 0.0-0.9 [facility] Comment on above: Result Comment: IG% - Immature Granulocytes (promyelocytes, myelocytes and metamyelocytes) > 1% indicates that a LEFT SHIFT is Present. Performed By: #### L 500.4050, L500.4100, L100.0100, L501.9520, L502.0250, L501.9985 #### [facility] [address] [place], [address] Lymphocytes/100 WBC (Bld) 26.4 % Normal 19-41 [facility] Comment on above: Performed By: #### L 500.4050, L500.4100, L100.0100, L501.9520, L502.0250, L501.9985 #### [facility] [address] [place], [address] MCH (RBC) [Entitic mass] 30.8 pg Normal 27.0-32.0 [facility] Comment on above: Performed By: #### L 500.4050, L500.4100, L100.0100, L501.9520, L502.0250, L501.9985 #### [facility] [address] [place], [address] MCHC (RBC) [Mass/Vol] 33.3 g/dL Normal 32-36 [facility] Comment on above: Performed By: #### L 500.4050, L500.4100, L100.0100, L501.9520, L502.0250, L501.9985 #### [facility] [address] [place], [address] MCV (RBC) [Entitic vol] 92.4 fL Normal 81-99 [facility] Comment on above: Performed By: #### L 500.4050, L500.4100, L100.0100, L501.9520, L502.0250, L501.9985 #### [facility] [address] [place], [address] Monocytes/100 WBC (Bld) 7.3 % Normal 0-10 [facility] Comment on above: Performed By: #### L 500.4050, L500.4100, L100.0100, L501.9520, L502.0250, L501.9985 #### [facility] [address] [place], [address] Neutrophils/100 WBC (Bld) 59.2 % Normal 47-70 [facility] Comment on above: Performed By: #### L 500.4050, L500.4100, L100.0100, L501.9520, L502.0250, L501.9985 #### [facility] [address] [place], [address] Nucleated RBC (Bld) [#/Vol] 0 10*3/uL Normal 0-5 [facility] Comment on above: Performed By: #### L 500.4050, L500.4100, L100.0100, L501.9520, L502.0250, L501.9985 #### [facility] [address] [place], [address] Platelet mean volume (Bld) [Entitic vol] 11.1 fL Normal 6.2-12.0 [facility] Comment on above: Performed By: #### L 500.4050, L500.4100, L100.0100, L501.9520, L502.0250, L501.9985 #### [facility] [address] [place], [address] Platelets (Bld) [#/Vol] 308 10*3/uL Normal 150-450 [facility] Comment on above: Performed By: #### L 500.4050, L500.4100, L100.0100, L501.9520, L502.0250, L501.9985 #### [facility] [address] [place], [address] RBC (Bld) [#/Vol] 5.00 10*6/uL Normal 4.2-5.4 [facility] Comment on above: Performed By: #### L 500.4050, L500.4100, L100.0100, L501.9520, L502.0250, L501.9985 #### [facility] [address] [place], [address] RDW SD 42.8 fl Normal 35.1-43.9 [facility] Comment on above: Performed By: #### L 500.4050, L500.4100, L100.0100, L501.9520, L502.0250, L501.9985 #### [facility] [address] [place], [place], [id number] [phone] WBC (Bld) [#/Vol] 6.7 10*3/uL Normal 4.4-11.0 [facility] Comment on above: Performed By: #### L 500.4050, L500.4100, L100.0100, L501.9520, L502.0250, L501.9985 #### [facility] [address] [place], [address] Carbon dioxide measurementOr dered By: Mandie Alas on 11-05-2024 CO2 [Moles/Vol] 28.0 mmol/L 21.0-32.0 [facility] Chloride measurementOrdered By: Mandie Alas on 11-05-2024 Chloride [Moles/Vol] 102 mmol/L 98-107 [facility] Comprehensive Metabolic Prof ilon 11-05-2024 Albumin [Mass/Vol] 3.7 g/dL Normal 3.2-5.0 [facility] Comment on above: Performed By: #### L 500.4050, L500.4100, L100.0100, L501.9520, L502.0250, L501.9985 #### [facility] [address] [place], [place], [id number] Albumin/Globulin [Mass ratio] 1.0 {ratio} Normal 0.9-2.4 [facility] Comment on above: Performed By: #### L 500.4050, L500.4100, L100.0100, L501.9520, L502.0250, L501.9985 #### [facility] [address] [place], [address] ALK P 91 U/L Normal 45-117 [facility] Comment on above: Performed By: #### L 500.4050, L500.4100, L100.0100, L501.9520, L502.0250, L501.9985 #### [facility] [address] [place], [address] ALT [Catalytic activity/Vol] 41 U/L Normal 13-56 [facility] Comment on above: Performed By: #### L 500.4050, L500.4100, L100.0100, L501.9520, L502.0250, L501.9985 #### [facility] [address] [place], [address] AST [Catalytic activity/Vol] 22 U/L Normal 15-37 [facility] Comment on above: Performed By: #### L 500.4050, L500.4100, L100.0100, L501.9520, L502.0250, L501.9985 #### [facility] [address] [place], [address] Bilirubin [Mass/Vol] 0.50 mg/dL Normal 0.20-1.00 [facility] Comment on above: Result Comment: For patients on eltrombopag therapy, use of Dimension [place] TBIL is not recommended. Performed By: #### L 500.4050, L500.4100, L100.0100, L501.9520, L502.0250, L501.9985 #### [facility] [address] [place], [address] BUN/CRE 20.8 RATIO High 10-20 [facility] Comment on above: Performed By: #### L 500.4050, L500.4100, L100.0100, L501.9520, L502.0250, L501.9985 #### [facility] [address] [place], [address] CA,Total 9.6 mg/dL Normal 8.5-10.1 [facility] Comment on above: Performed By: #### L 500.4050, L500.4100, L100.0100, L501.9520, L502.0250, L501.9985 #### [facility] [address] [place], [address] Chloride [Moles/Vol] 102 mmol/L Normal 98-107 [facility] Comment on above: Performed By: #### L 500.4050, L500.4100, L100.0100, L501.9520, L502.0250, L501.9985 #### [facility] [address] [place], [address] CO2 [Moles/Vol] 28.0 mmol/L Normal 21.0-32.0 [facility] Comment on above: Performed By: #### L 500.4050, L500.4100, L100.0100, L501.9520, L502.0250, L501.9985 #### [facility] [address] [place], [address] Creatinine [Mass/Vol] 0.87 mg/dL Normal 0.55-1.02 [facility] Comment on above: Result Comment: The validity of the calculated GFR GFRAA in patients over 70 years has not been determined. Clinical correlation is essential. Performed By: #### L 500.4050, L500.4100, L100.0100, L501.9520, L502.0250, L501.9985 #### [facility] [address] [place], [address] EST GFR - AA 89 mL/min Normal >60 [facility] Comment on above: Result Comment: Afri can Citizen Of [place] GFR Calc Performed By: #### L 500.4050, L500.4100, L100.0100, L501.9520, L502.0250, L501.9985 #### [facility] [address] [place], [address] GAP 7 Normal 5-15 [facility] Comment on above: Performed By: #### L 500.4050, L500.4100, L100.0100, L501.9520, L502.0250, L501.9985 #### [facility] [address] [place], [address] GFR/1.73 sq M.predicted among non-blacks MDRD (S/P/Bld) [Vol rate/Area] 74 mL/min/{1.73_m2} Normal >60 [facility] Comment on above: Result Comment: Non- GFR Calc Performed By: #### L 500.4050, L500.4100, L100.0100, L501.9520, L502.0250, L501.9985 #### [facility] [address] [place], [address] Globulin (S) [Mass/Vol] 3.6 g/dL Normal 2.2-4.2 [facility] Comment on above: Performed By: #### L 500.4050, L500.4100, L100.0100, L501.9520, L502.0250, L501.9985 #### [facility] [address] [place], [address] Glucose [Mass/Vol] 88 mg/dL Normal 74-106 [facility] Comment on above: Performed By: #### L 500.4050, L500.4100, L100.0100, L501.9520, L502.0250, L501.9985 #### [facility] [address] [place], [address] Potassium [Moles/Vol] 3.9 mmol/L Normal 3.5-5.1 [facility] Comment on above: Performed By: #### L 500.4050, L500.4100, L100.0100, L501.9520, L502.0250, L501.9985 #### [facility] [address] [place], [address] Sodium [Moles/Vol] 138 mmol/L Normal 136-145 [facility] Comment on above: Performed By: #### L 500.4050, L500.4100, L100.0100, L501.9520, L502.0250, L501.9985 #### [facility] [address] [place], [address] T PROT 7.3 g/dL Normal 6.4-8.2 [facility] Comment on above: Performed By: #### L 500.4050, L500.4100, L100.0100, L501.9520, L502.0250, L501.9985 #### [facility] [address] [place], [address] Urea nitrogen [Mass/Vol] 18 mg/dL Normal 7-18 [facility] Comment on above: Performed By: #### L 500.4050, L500.4100, L100.0100, L501.9520, L502.0250, L501.9985 #### [facility] [address] [place], [address] Eosinophil percentageOrdered By: Mandie Alas on 11-05-2024 Eosinophils/100 WBC (Bld) 5.7 % High 0-5 [facility] Erythrocyte distribution wid th ratioOrdered By: Mandie Alas on 11-05-2024 Erythrocyte distribution width (RBC) [Ratio] 12.7 % 11.6-14.6 [facility] Erythrocyte distribution wid th standard deviationOrdered By: Mandie Alas on 11-05-2024 Erythrocyte distribution width (RBC) [Entitic vol] 42.8 fL 35.1-43.9 [facility] Estimated glomerular filtrat ion rate (GFR) AmericanOrdered By: Mandie Alas on 11-05-2024 Estimated GFR (MDRD) Amer 89 mL/min >60 [facility] Comment on above: GFR Calc Glomerular filtration rate ( GFR) estimationOrdered By: Mandie Alas on 11-05-2024 Estimated GFR (MDRD) Non-Af Amer 74 mL/min >60 [facility] Comment on above: Non- GFR Calc Glucose measurementOrdered B y: Mandie Alas on 11-05-2024 Glucose [Mass/Vol] 88 mg/dL 74-106 [facility] Hematocrit Auto (Bld) [Volum e fraction]Ordered By: Mandie Alas on 11-05-2024 Hematocrit (Bld) [Volume fraction] 46.2 % 37-47 [facility] Hemoglobin A1con 11-05-2024 HbA1c (Bld) [Mass fraction] 5.5 % Normal 3.8-5.6 [facility] Comment on above: Result Comment: Norm al < 5.7 % Prediabetic 5.7 - 6.4 % Diabetic >or= 6.5 % Please note range changes. Performed By: #### L 500.4050, L500.4100, L100.0100, L501.9520, L502.0250, L501.9985 #### [facility] [address] [place], [place], [id number] Hemoglobin A1c percentageOrd ered By: Mandie Alas on 11-05-2024 HbA1c (Bld) [Mass fraction] 5.5 % 3.8-5.6 [facility] Comment on above: Normal < 5.7 % Predi abetic 5.7 - 6.4 % Diabetic >or= 6.5 % Please note range changes. Hemoglobin measurementOrdere d By: Mandie Alas on 11-05-2024 Hemoglobin (Bld) [Mass/Vol] 15.4 g/dL High 12.0-15.0 [facility] High density lipoprotein (HD L) measurementOrdered By: Mandie Alas on 11-05-2024 Cholesterol in HDL [Mass/Vol] 59 mg/dL >40 [facility] Comment on above: The drugs N-Acetylcy steine and Metamizole may falsely depress this assay. Reference Range HDL <40 mg/dL Low HDL Cholesterol HDL >or= 60 mg/dL High HDL Cholesterol Immature granulocytes/100 WB C Auto (Bld)Ordered By: Mandie Alas on 11-05-2024 Immature granulocytes/100 WBC (Bld) 0.100 % 0.0-0.9 [facility] Comment on above: IG% - Immature Granu locytes (promyelocytes, myelocytes and metamyelocytes) > 1% indicates that a LEFT SHIFT is Present. Laboratory - Chemistry and C hemistry - challengeOrdered By: Mandie Alas on 11-05-2024 AST [Catalytic activity/Vol] 22 U/L 15-37 [facility] Lipid Profileon 11-05-2024 Cholesterol [Mass/Vol] 271 mg/dL High 200 [facility] Comment on above: Result Comment: <200 mg/dL Desirable 200-240 mg/dL Borderline >240 mg/dL High Risk Performed By: #### L 500.4050, L500.4100, L100.0100, L501.9520, L502.0250, L501.9985 #### [facility] [address] [place], [place], [address] Cholesterol in HDL [Mass/Vol] 59 mg/dL Normal [facility] Comment on above: Result Comment: The drugs N-Acetylcysteine and Metamizole may falsely depress this assay. Reference Range HDL <40 mg/dL Low HDL Cholesterol HDL >or= 60 mg/dL High HDL Cholesterol Performed By: #### L 500.4050, L500.4100, L100.0100, L501.9520, L502.0250, L501.9985 #### [facility] [address] [place], [place], [address] Cholesterol in LDL [Mass/Vol] 145 mg/dL High 0-130 [facility] Comment on above: Performed By: #### L 500.4050, L500.4100, L100.0100, L501.9520, L502.0250, L501.9985 #### [facility] [address] [place], [place], [address] Cholesterol in VLDL [Mass/Vol] 67 mg/dL High 5-40 [facility] Comment on above: Performed By: #### L 500.4050, L500.4100, L100.0100, L501.9520, L502.0250, L501.9985 #### [facility] [address] [place], [address] Triglyceride [Mass/Vol] 333 mg/dL High [facility] Comment on above: Result Comment: The drugs N-Acetylcysteine and Metamizole may falsely depress this assay. Serum Triglycerides Reference Interval Normal <150 mg/dL Borderline high 150 - 199 mg/dL High 200 - 499 mg/dL Very High > or = 500 mg/dL Performed By: #### L 500.4050, L500.4100, L100.0100, L501.9520, L502.0250, L501.9985 #### [facility] [address] [place], [place], [address] Low density lipoprotein (LDL ) cholesterol measurementOrdered By: Mandie Alas on 11-05-2024 Cholesterol in LDL [Mass/Vol] 145 mg/dL High 0-130 [facility] Lymphocytes Auto (Unsp spec) [#/Vol]Ordered By: Mandie Alas on 11-05-2024 Lymphocytes (Bld) [#/Vol] 1.77 10*3/uL 0.83-4.51 [facility] Lymphocytes/100 WBC Auto (Un sp spec)Ordered By: Mandie Alas on 11-05-2024 Lymphocytes/100 WBC (Bld) 26.4 % 19-41 [facility] MCV (mean corpuscular volume ) determinationOrdered By: Mandie Alas on 11-05-2024 MCV (RBC) [Entitic vol] 92.4 fL 81-99 [facility] Mean corpuscular hemoglobin (MCH) determinationOrdered By: Mandie Alas on 11-05-2024 MCH (RBC) [Entitic mass] 30.8 pg 27.0-32.0 [facility] Mean corpuscular hemoglobin concentration (MCHC) determinationOrdered By: Mandie Alas on 11-05-2024 MCHC (RBC) [Mass/Vol] 33.3 g/dL 32-36 [facility] Mean platelet volume determi nationOrdered By: Mandie Alas on 11-05-2024 Platelet mean volume (Bld) [Entitic vol] 11.1 fL 6.2-12.0 [facility] Microalb:Creat Ratio,Random URon 11-05-2024 Creatinine [Mass/Vol] 84.80 mg/dL Normal NO RAN GE EST. [facility] Comment on above: Performed By: #### L 500.4050, L500.4100, L100.0100, L501.9520, L502.0250, L501.9985 #### [facility] [address] [place], [place], [address] MALB:CRE 8.5 mg/g CRE Normal <30 mg/g CRE [facility] Comment on above: Performed By: #### L 500.4050, L500.4100, L100.0100, L501.9520, L502.0250, L501.9985 #### [facility] [address] [place], [place], [id number] (631 MICROALBUMIN,UR 7.2 mg/L Normal NO RANGE EST. [facility] Comment on above: Performed By: #### L 500.4050, L500.4100, L100.0100, L501.9520, L502.0250, L501.9985 #### [facility] [address] [place], [place], [address] Monocyte percentageOrdered B y: Mandie Alas on 11-05-2024 Monocytes/100 WBC (Bld) 7.3 % 0-10 [facility] Neutrophil percentageOrdered By: Mandie Alas on 11-05-2024 Neutrophils/100 WBC (Bld) 59.2 % 47-70 [facility] Nucleated red blood cell per centageOrdered By: Mandie Alas on 11-05-2024 Nucleated RBC/100 WBC (Bld) [Ratio] 0 % 0-5 [facility] Platelet countOrdered By: Pio Alas on 11-05-2024 Platelets (Bld) [#/Vol] 308 10*3/uL 150-450 [facility] Potassium measurementOrdered By: Mandie Alas on 11-05-2024 Potassium [Moles/Vol] 3.9 mmol/L 3.5-5.1 [facility] RBC Auto (Bld) [#/Vol]Ordere d By: Mandie Alas on 11-05-2024 RBC (Bld) [#/Vol] 5.00 10*6/uL 4.2-5.4 [facility] Random urine microalbumin me asurementOrdered By: Mandie Alas on 11-05-2024 Urine Random Microalbumin 7.2 mg/L NO RANGE EST. [facility] Serum anion gap measurementO rdered By: Mandie Alas on 11-05-2024 Anion gap [Moles/Vol] 7 mmol/L 5-15 [facility] Serum globulin measurementOr dered By: Mandie Alas on 11-05-2024 Globulin (S) [Mass/Vol] 3.6 g/dL 2.2-4.2 [facility] Serum or plasma alanine faulkner otransferase (ALT) measurementOrdered By: Mandie Alas on 11-05-2024 ALT [Catalytic activity/Vol] 41 U/L 13-56 [facility] Serum or plasma albumin eliz urement (mass/volume)Ordered By: Mandie Alas on 11-05-2024 Albumin [Mass/Vol] 3.7 g/dL 3.2-5.0 [facility] Serum or plasma alkaline [place] sphatase measurementOrdered By: Mandie Alas on 11-05-2024 ALP [Catalytic activity/Vol] 91 U/L 45-117 [facility] Serum or plasma calcium eliz urement (mass/volume)Ordered By: Mandie Alas on 11-05-2024 Calcium [Mass/Vol] 9.6 mg/dL 8.5-10.1 [facility] Serum or plasma cholesterol measurement (mass/volume)Ordered By: Mandie Alas on 11-05-2024 Cholesterol [Mass/Vol] 271 mg/dL High <200 [facility] Comment on above: <200 mg/dL Desirable 200-240 mg/dL Borderline >240 mg/dL High Risk Serum or plasma creatinine m easurement (mass/volume)Ordered By: Mandie Alas on 11-05-2024 Creatinine [Mass/Vol] 0.87 mg/dL 0.55-1.02 [facility] Comment on above: The validity of the calculated GFR & GFRAA in patients over 70 years has not been determined. Clinical correlation is essential. Serum or plasma urea nitroge n measurement (mass/volume)Ordered By: Mandie Alas on 11-05-2024 Urea nitrogen [Mass/Vol] 18 mg/dL 7-18 [facility] Sodium levelOrdered By: Srini Alas on 11-05-2024 Sodium [Moles/Vol] 138 mmol/L 136-145 [facility] TSH QnOrdered By: Mandie tiwari on 11-05-2024 Thyroid Stimulating Hormone (TSH) 1.590 uIU/mL 0.358-3.[address] [facility] Thyroid Stim Hormone (TSH)on 11-05-2024 TSH 1.590 uIU/mL Normal 0.358-3.[address] [facility] Comment on above: Performed By: #### L 500.4050, L500.4100, L100.0100, L501.9520, L502.0250, L501.9985 #### [facility] [address] [place], [address] Total proteinOrdered By: Kuldeep Alas on 11-05-2024 Protein [Mass/Vol] 7.3 g/dL 6.4-8.2 [facility] Triglycerides measurementOrd ered By: Mandie Alas on 11-05-2024 Triglyceride [Mass/Vol] 333 mg/dL High <199 [facility] Comment on above: The drugs N-Acetylcy steine and Metamizole may falsely depress this assay.Serum Triglycerides Reference Interval Normal <150 mg/dL Borderline high 150 - 199 mg/dL High 200 - 499 mg/dL Very High > or = 500 mg/dL Urine albumin/creatinine rat io for detection of microalbuminuriaOrdered By: Mandie Alas on 11-05-2024 Urine Microalbumin/Creatinine Ratio 8.5 mg/g CRE <30 [facility] Urine creatinine measurement (mass/volume)Ordered By: Mandieefren Alas on 11-05-2024 Creatinine (U) [Mass/Vol] 84.80 mg/dL NO RANGE EST. [facility] Very low density lipoprotein (VLDL) cholesterol measurementOrdered By: Mandie Alas on 11-05-2024 VLDL Cholesterol 67 mg/dL High 5-40 [facility] White blood cell (WBC) count Ordered By: Mandie Alas on 11-05-2024 WBC (Bld) [#/Vol] 6.7 10*3/uL 4.4-11.0 [facility] 12 Lead EKGon 10-23-2024 12 Lead EKG [facility] [address] [place] [address] 12 Lead EKG 10/23/24 1459 MR#: [id number] Acct: [id number] Name: THUY MICHAEL Rep #: [id number] : 1975 49 From: Thee Schrader MD Attending Dr: Status: DEP ER Ordering Dr: Michael Godinez MD Date: 10/23/24 Location: ED Sex: F C Admitted: Test Reason : HYPOTENSION Blood Pressure : */* mmHG Vent. Rate : 68 BPM Atrial Rate : 68 BPM P-R Int : 136 ms QRS Dur : 134 ms QT Int : 444 ms P-R-T Axes : 37 -8 78 degrees QTcB Int : 472 ms Normal sinus rhythm Possible Left atrial enlargement Left bundle branch block Abnormal ECG Confirmed by Thee Schrader ([id number]), news assignment editor JULIAN MARTIN ([id number]) on 10/24/2024 11:23:54 AM Referred By: UG Confirmed By: Thee Schrader 10/24/24 1124 Date Thee Schrader MD CC: Dr. Michael Godinez MD; No Primary Care Physician Signed Normal [facility] Basic Metabolic Profile (BMP )on 10-23-2024 BUN/CRE 15.3 RATIO Normal 10-20 [facility] Comment on above: Performed By: #### L 500.2500 ####[facility] [address] [place], [address] CA,Total 9.5 mg/dL Normal 8.5-10.1 [facility] Comment on above: Performed By: #### L 500.2500 ####[facility] [address] [place], [address] Chloride [Moles/Vol] 108 mmol/L High 98-107 [facility] Comment on above: Performed By: #### L 500.2500 ####[facility] [address] [place], [address] CO2 [Moles/Vol] 28.0 mmol/L Normal 21.0-32.0 [facility] Comment on above: Performed By: #### L 500.2500 ####[facility] [address] [place], [address] Creatinine [Mass/Vol] 0.92 mg/dL Normal 0.55-1.02 [facility] Comment on above: Result Comment: The validity of the calculated GFR GFRAA in patients over 70 years has not been determined. Clinical correlation is essential. Performed By: #### L 500.2500 ####[facility] [address] [place], [address] ECRCL 76.21 ml/min Normal [facility] Comment on above: Performed By: #### L 500.2500 ####[facility] [address] [place], [address] EST GFR - AA 84 mL/min Normal >60 [facility] Comment on above: Result Comment: Afri can Citizen Of [place] GFR Calc Performed By: #### L 500.2500 ####[facility] [address] [place], [address] GAP 4 Low 5-15 [facility] Comment on above: Performed By: #### L 500.2500 ####[facility] [address] [place], [address] GFR/1.73 sq M.predicted among non-blacks MDRD (S/P/Bld) [Vol rate/Area] 69 mL/min/{1.73_m2} Normal >60 [facility] Comment on above: Result Comment: Non- GFR Calc Performed By: #### L 500.2500 ####[facility] [address] [place], [address] Glucose [Mass/Vol] 101 mg/dL Normal 74-106 [facility] Comment on above: Result Comment: Fast ing Glucose result from 100 to 125 mg/dL suggests IMPAIRED HOMEOSTASIS per A.D.A. criteria. Performed By: #### L 500.2500 ####[facility] [address] [place], [address] Potassium [Moles/Vol] 3.9 mmol/L Normal 3.5-5.1 [facility] Comment on above: Performed By: #### L 500.2500 ####[facility] [address] [place], [address] Sodium [Moles/Vol] 140 mmol/L Normal 136-145 [facility] Comment on above: Performed By: #### L 500.2500 ####[facility] [address] [place], [address] Urea nitrogen [Mass/Vol] 14 mg/dL Normal 7-18 [facility] Comment on above: Performed By: #### L 500.2500 ####[facility] [address] [place], [address] Bilirubin Test strip Ql (U)O rdered By: Michael Godinez on 10-23-2024 Bilirubin Ql (U) Negative Negative [facility] Blood urea nitrogen (BUN)/cr eatinine ratioOrdered By: Michael Godinez on 10-23-2024 Urea nitrogen/Creatinine [Mass ratio] 15.3 mg/mg 10-20 [facility] Carbon dioxide measurementOr dered By: Michael Godinez on 10-23-2024 CO2 [Moles/Vol] 28.0 mmol/L 21.0-32.0 [facility] Chloride measurementOrdered By: Michaelreid Godinez on 10-23-2024 Chloride [Moles/Vol] 108 mmol/L High 98-107 [facility] Emergency Department Summary on 10-23-2024 Emergency Department Summary [facility] Medical Records Department [address] [place] [address] Emergency Department Summary 10/23/24 MR#: [id number] Acct: [id number] Name: THUY MICHAEL Rep #: [id number] : 1975 49 From: Michael Godinez MD PCP: Care Physician,No Primary Status:DEP ER Location: ED ADDENDUM by Dr. Michael Godinez MD on 10/23/24 at 1742 EKG that was obtained at 1459 was interpreted by me at 1502. EKG reveals sinus rhythm rate of 68. [place] interval is 136 ms. Cures duration 134 ms. QT duration is 444 ms. Turner is normal. There is evidence of left bundle branch block. There is no acute ischemic changes or evidence of LVH. 10/23/24 1742 Cosigner Signature (if applicable): cc: No Primary Care Physician * Signed HPI History of Present Illness Chief Complaint: Hypertension Detail of Chief Complaint: Elevated blood pressure as high as 168/100. Informant: patient Onset/Context/Timing Onset: Days Context: - (Patient has not seen a physician in 5 years. She checked her pressure because she felt lightheaded and visual changes) Timing: Intermittent Quality: Blood pressure systolic has varied between 140 and 170. Location: Cardiovascular Current Severity: Mild Maximum Severity: Mild Worsened by: Nothing Relieved by: Nothing Associated Symptoms Associated Symptoms: Episodes of lightheadedness when patient has visual changes. Narrative Narrative: Patient is a 49-year-old woman. She is on no medication. Her medication list from years ago indicates that she was on an antidepressant, a statin, Plavix and NSAID. She states she has not seen a doctor in 5 years. She had a blood pressure checked in 5 years. She is concerned because is elevated. She denies headache. She denies double vision loss of vision. She has had this intermittent bilateral blurred vision. She denies trouble with speech or swallowing. She denies paresthesia, anesthesia or motor weakness upper lower 20. Denies problems with balance or coordination. She denies problems with fine motor skills. She denies cardiac or respiratory symptoms. She denies GI symptoms. She has no urologic symptoms. Prior similar symptoms: No Recent Illness/Hospitalization: No [facility] Medical History Bartholin's gland abscess Home Medications ???Medication ???Instructions ???Recorded ???Last Taken ???Type albuterol sulfate 90 mcg/actuation 2 puff inhalation Q6H 10/11/17 U nknown History aerosol inhaler (ProAir HFA) amitriptyline 25 mg tablet 25 mg PO QHS PRN Headache 10/11/17 Unknown History ucrmiqg-eebcfonigtcfk-iidg eine 250 2 tab PO Q6H PRN Headache Unknown History mg-250 mg-65 mg tablet (Excedrin Extra Strength) atorvastatin 20 mg tablet 20 mg PO QDAY 10/11/17 Unknown His tory ciprofloxacin HCl 0.3 % eye drops 1 drp ophthalmic (eye) Q6H Unknown History clopidogrel 75 mg tablet 75 mg PO QDAY #30 tabs 10/11/17 Rx ibuprofen 200 mg tablet 200 mg PO 5X/DAY 10/11/17 Unknown History pregabalin 50 mg capsule (Lyrica) 75 mg PO TID 10/11/17 Unknown His tory benzonatate 200 mg capsule 200 mg PO TID PRN PRN Cough Unknown History loratadine 10 mg capsule 10 mg PO DAILY 10/17/17 Unknown Hi story meloxicam 15 mg tablet 15 mg PO DAILY 10/17/17 Unknown Hi story hydrochlorothiazide 12.5 mg tablet 12.5 mg PO DAILY #30 tabs Unknown Rx Allergy/AdvReac Type Severity Reaction Status Date / Time No Known Allergies Allergy Verified 10/23/24 13:24 Surgical History Hx of tonsillectomy History of hysterectomy Social History Smoking Status: Former smoker ROS ROS ED Constitutional Constitutional ED: Denies chills, fever(s), subjective, sweats or weight loss Eyes Eyes: Reports blurry vision bilateral; Denies change in vision or diplopia ENT ENT ED: Denies ear pain, rhinorrhea or sore throat Cardiovascular Cardiovascular: Denies chest pain, orthopnea, palpitations, paroxysmal nocturnal dyspnea or racing heartbeat Respiratory/Chest Respiratory/Chest: Denies cough, dyspnea, dyspnea on exertion, orthopnea or paroxysmal nocturnal dyspnea Gastrointestinal Gastrointestinal: Denies abdominal pain, nausea or vomiting Genitourinary Genitourinary ED: Denies dysuria, hematuria or urinary frequency Musculoskeletal Musculoskeletal: Denies arthralgias or myalgias Integumentary Denies rash Neurologic Neurologic: Denies headache(s), paresthesias or weakness Hematologic/Lymphatic Hematologic/Lymphatic: Reports systems reviewed and no addt'l complaints, except as documented EXAM Physical Exam Const Vital Signs: 10/23/24 13:22 10/23/24 14:58 (more content not included)... Normal [facility] Epithelial cells.squamous LM Ql (Urine sed)Ordered By: Michael Godinez on 10-23-2024 Epithelial cells.squamous LM.HPF (Urine sed) [#/Area] 0 /[HPF] 5-10 [facility] Estimated glomerular filtrat ion rate (GFR) AmericanOrdered By: Michael Godinez on 10-23-2024 Estimated GFR (MDRD) Amer 84 mL/min >60 [facility] Comment on above: GFR Calc Estimation of creatinine jose juan aranceOrdered By: Michael Godinez on 10-23-2024 Estimated Creatinine Clearance Calc 76.21 ml/min [facility] Glomerular filtration rate ( GFR) estimationOrdered By: Michael Godinez on 10-23-2024 Estimated GFR (MDRD) Non-Af Amer 69 mL/min >60 [facility] Comment on above: Non- GFR Calc Glucose Ql (U)Ordered By: Tulio Godinez on 10-23-2024 Urine Glucose (UA) Normal mg/dl Normal [facility] Glucose measurementOrdered B y: Michael Godinez on 10-23-2024 Glucose [Mass/Vol] 101 mg/dL 74-106 [facility] Comment on above: Fasting Glucose resu lt from 100 to 125 mg/dL suggests IMPAIRED HOMEOSTASIS per A.D.A. criteria. Ketones Test strip Ql (U)Ord ered By: Michael Godinez on 10-23-2024 Ketones Ql (U) Negative Negative [facility] Microscopic analysis of urin e for red blood cells (RBC)Ordered By: Michael Godinez on 10-23-2024 Urine RBC 0 SEEN /hpf 0-5 [facility] Mucus LM Ql (Urine sed)Order ed By: Michael Godinez on 10-23-2024 Mucus Ql (Urine sed) 0 SEEN /hpf [facility] Nitrite Test strip Ql (U)Ord ered By: Michael Godinez on 10-23-2024 Nitrite Ql (U) Negative Negative [facility] Potassium measurementOrdered By: Michael Godinez on 10-23-2024 Potassium [Moles/Vol] 3.9 mmol/L 3.5-5.1 [facility] Protein Test strip Ql (U)Ord ered By: Michael Godinez on 10-23-2024 Protein Ql (U) Negative Negative [facility] Serum anion gap measurementO rdered By: Michael Godinez on 10-23-2024 Anion gap [Moles/Vol] 4 mmol/L Low 5-15 [facility] Serum or plasma calcium eliz urement (mass/volume)Ordered By: Michael Godinez on 10-23-2024 Calcium [Mass/Vol] 9.5 mg/dL 8.5-10.1 [facility] Serum or plasma creatinine m easurement (mass/volume)Ordered By: Michael Godinez on 10-23-2024 Creatinine [Mass/Vol] 0.92 mg/dL 0.55-1.02 [facility] Comment on above: The validity of the calculated GFR & GFRAA in patients over 70 years has not been determined. Clinical correlation is essential. Serum or plasma urea nitroge n measurement (mass/volume)Ordered By: Michael Godinez on 10-23-2024 Urea nitrogen [Mass/Vol] 14 mg/dL 7-18 [facility] Sodium levelOrdered By: Michael Godinez on 10-23-2024 Sodium [Moles/Vol] 140 mmol/L 136-145 [facility] Urinalysis, Completeon 10-23 RBC 0 SEEN Normal 0-5 [facility] Comment on above: Order Comment: CLEAN CATCH Performed By: #### L [id number] ####[facility] [id number] [place], [address] Urine blood detectionOrdered By: Michael Godinez on 10-23-2024 Urine Occult Blood Negative Negative [facility] Urine clarityOrdered By: Michael Godinez on 10-23-2024 Clarity (U) Sl. Cloudy Clear [facility] Urine color determinationOrd ered By: Michael Godinez on 10-23-2024 Color (U) Yellow Yellow [facility] Urine leukocyte esterase det ection by dipstickOrdered By: Michael Godinez on 10-23-2024 Leukocyte esterase Test strip Ql (U) Negative Negative [facility] Urine pHOrdered By: Michael mathews on 10-23-2024 pH (U) 7.0 [pH] 5.0 - 8.0 [facility] Urine sediment bacteria coun t by microscopy (number/high power field)Ordered By: Michael Godinez on 10-23-2024 Bacteria LM.HPF (Urine sed) [#/Area] 0 /[HPF] None Seen [facility] Urine specific gravity measu rementOrdered By: Michael Godinez on 10-23-2024 Specific gravity (U) [Rel density] 1.010 1.002-1.[address] [facility] Urobilinogen Ql (U)Ordered B y: Michael Godinez on 10-23-2024 Urine Urobilinogen Normal mg/dl Normal [facility] White blood cell countOrdere d By: Michael Godinez on 10-23-2024 Urine WBC 0 SEEN /hpf 0-5 [facility] CNOVon 09-21-2022 CNOV Office Visit (UCWSTR ) -- THUY MICHAEL ([id number]) 1975 F Date Time Provider Department 09/21/22 7:45 PM MOUNIKA WALKER [facility] During your visit today, we recorded the following information about you: Temperature Pulse Respiration Blood pressure 97.6 degrees 88/minute 16/minute 152/88 Weight 79.4 kg Mounika Walker APRN.DIRECTOR OF MANAGED CARE 09/21/2022 7:54 PM Signed This note was created using NoteWriter. Subjective Thuy Michael is a 47 year old female. 47 year old female with PMH headaches presents for complaints of abscess. Acute onset 2 days ago States started as a hard pea sized tender bump Has progressed +erythema surrounding Endorses history of same in past, went to ED and area was lanced States using warm compresses Denies drainage. Denies fever or chills. The history is provided by the patient. No supervisor modern languages was used. Abscess This is a new problem. The current episode started in the past 7 days. The problem occurs constantly. The problem has been gradually worsening. Pertinent negatives include no abdominal pain, anorexia, arthralgias, chest pain, chills, congestion, coughing, fatigue, fever, headaches, myalgias, nausea, neck pain, rash, sore throat, swollen glands, urinary symptoms, vertigo, visual change, vomiting or weakness. Exacerbated by: touching. Treatments tried: warm compresses. The treatment provided no relief. 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 Hidradenitis FREQUENT RECURRENCE Other and unspecified hyperlipidemia Other forms of migraine Spinal stenosis in cervical region Tobacco abuse 11/27/2012 Tobacco use disorder PAST SURGICAL HISTORY Procedure Laterality Date CLTX RDCRPL/INTERCARPL DISLC 1/> BONES W/MANJ CONIZATION CERVIX W/WO DANDC RPR ELTRD EXC 10/2000 CIS/ANNA MARIE III LIG/TRNSXJ FLP TUBE ABDL/VAG APPR UNI/BI PAST SURGICAL HISTORY OF 10/2006 bartholin gland's removed REMOVAL OF RESIDUAL TOOTH ROOTS (CUTTING PROCEDURE) wisdom x 2, other molars x 4-general SURGERY (GENERAL SURGERY) CONSULT 05/24/2016 right knee surgery TONSILLECTOMY PRIMARY/SECONDARY VAGINAL HYSTERECTOMY UTERUS 250 GM/< 05/14/2010 Hysterectomy, vaginal ALLERGIES Patient has no known allergies. MEDICATIONS amitriptyline (ELAVIL) 25 mg tablet doxycycline monohydrate 100 mg tablet Take 1 tablet by mouth twice daily for 7 days. benzonatate (TESSALON PERLES) 100 mg capsule Take 2 capsules by mouth three times daily as needed. (Patient not taking: Reported on 09/21/2022) albuterol HFA (PROAIR HFA) 90 mcg/actuation inhaler Inhale 2 Puffs as instructed every 6 hours as needed. (Patient not taking: Reported on 09/21/2022) traZODone (DESYREL) 100 mg tablet TAKE 1 TABLET BY MOUTH EVERYDAY AT BEDTIME (Patient not taking: Reported on 09/21/2022) buPROPion XL (WELLBUTRIN XL) 150 mg 24 hr tablet TAKE 1 TABLET BY MOUTH EVERY DAY IN THE MORNING (Patient not taking: Reported on 09/21/2022) folic acid 1 mg tablet Take 1 mg by mouth once daily. (Patient not taking: Reported on 09/21/2022) DULoxetine (CYMBALTA) 60 mg capsule Take 60 mg by mouth once daily. (Patient not taking: Reported on 09/21/2022) Benzonatate 200 mg capsule Take 1 capsule by mouth three times daily as needed. (Patient not taking: Reported on 10/17/2018 ) atorvastatin (LIPITOR) 20 mg tablet Take 1 tablet by mouth once daily. (Patient not taking: Reported on 07/03/2018 ) pregabalin (LYRICA) 50 mg capsule Take 75 mg by mouth three times daily. (Patient not taking: Reported on 09/21/2022) pregabalin (LYRICA) 75 mg capsule Take 75 mg by mouth twice daily. CELECOXIB (CELEBREX ORAL) Take by mouth. Hsjtgxj-Lpytdtuvtoljv-Jtlg eine 250-250-65 mg per tablet Take 2 tablets by mouth every 6 hours as needed. (Patient not taking: Reported on 09/21/2022) meloxicam (MOBIC) 15 mg tablet Take 1 tablet by mouth once daily. Take with food. (Patient not taking: Reported on 07/03/2018 ) loratadine (CLARITIN) 10 mg tablet Take 1 tablet by mouth once daily. (Patient not taking: Reported on 07/11/2019 ) IBUPROFEN IB ORAL Take 200 mg by mouth five times daily. FAMILY HISTORY Problem Relation Age of Onset Diabetes Mother Hypertension Mother Heart Mother MO X 2 Stroke Father Diabetes Maternal Grandmother other (OVARIAN CANCER) Maternal Aunt X2 PLUS ONE MATERNAL COUSIN Hypertension Maternal Aunt X 3 Hypertension Maternal Uncle other (DIABETIC) Maternal Aunt X 2 Social History Tobacco Use Smoking status: Former Packs/day: 1.00 Years: 11.00 Pack years: 11.00 Types: Cigarettes Smokeless tobacco: Never Substance Use Topics Alcohol use: Yes Drug u (more content not included)... [facility] Tele[facility] (AGCARDWST) THUY DELCID ([id number]) 1975 FDate Time Provider Department11/04/17 CK GENTILE During your visit today, we recorded the following information about you:Ck Gentile MD 11/04/2017 2:36 PM SignedUltrasound reviewed at office visit.Leana Rendon As of Date: 11/04/2017(No Known Allergies)Date Reviewed: 10/04/2017Reviewed by: Griselda Carvajal - Fully AssessedReason for Visit: Results [95]Prescriptions as of 11/04/2017 Sig: ATORVASTATIN 20 MG TABLET Take 1 tablet by mouth once d* CIPROFLOXACIN 0.3 % EYE DROPS Use 1 Drop in the left eye fo* PREGABALIN 50 MG CAPSULE Take 75 mg by mouth three skylar* PREGABALIN 75 MG CAPSULE Take 75 mg by mouth twice gilmar* AMITRIPTYLINE 25 MG TABLET CELEBREX ORAL Take by mouth. PJRXSVM-PCWNCRZJEFLGE-CHZA EIN* Take 2 tablets by mouth every* BENZONATATE 200 MG CAPSULE Take 200 mg by mouth three ti* MELOXICAM 15 MG TABLET Take 1 tablet by mouth once d* METHYLPREDNISOLONE 4 MG TABLE* Take as directed ALBUTEROL SULFATE HFA 90 MCG/* Inhale 2 Puffs as instructed * LORATADINE 10 MG TABLET Take 1 tablet by mouth once d* IBUPROFEN IB ORAL Take 200 mg by mouth five skylar*Problem List As Of Date 11/04/2017 Noted Resolved TENSION HEADACHE [G44.209] INVALID FOR* BARTHOLIN'S GLND ABSCESS [N75.1] INVALID FOR* Abnormal Mammogram, Unspecified [R92.8] INVALID FOR* Anxiety [F41.9] INVALID FOR* Sprain of neck [S13.9XXA] INVALID FOR* Tobacco abuse [Z72.0] INVALID FOR* Cervical radiculopathy [M54.12] INVALID FOR* Status:Closed by VIELKA BEAL LPN on 11/04/17 [facility] CNOVon 11-02-2017 [facility] Office Visit (AGCARDWST) THUY DELCID ([id number]) 1975 FDate Time Provider Department11/02/17 1:00 PM CK GENTILE During your visit today, we recorded the following information about you: Pulse Blood pressure Weight 86/minute 120/86 81.3 kgCk Gentile MD 11/02/2017 3:19 PM AddendumPERTINENT CARDIAC HISTORYLBBBFamily history premature ASHDTobaccoismCardiomyopat hy - mild nonischemicNear syncopeTobaccoismADHERENCE TO GUIDELINESACE-I or ARB for HF with prior LVEFANDlt;40 (NQF 0081) - N/AASA or Plavix for ASHD (NQF 0067) - N/ABeta brown for ASHD with prior MO or prior LVEFANDlt;40 (NQF 0070) - N/ABeta brown for HF with prior LVEFANDlt;40 (NQF 0083) - N/AACE-I or ARB for ASHD with DM or prior LVEFANDlt;40 (NQF 0066) - N/AStatin therapy for ASHD or FHL or DM - N/ABMI documented and plan if ANDgt;25 (NQF 0421) - lifestyle recommendation formTobacco use screening and referral (NQ 0028) - lifestyle recommendation formRecommendation for whole food, plant based diet - lifestyle recommendation formCLINICAL IMPRESSION/PLAN:Thuy Delcid has left bundle branch block without evidence of underlyingischemic heart disease or cardiomyopathy. We will continue to monitor this. Herlipid profile will be checked as scheduled.There is no evidence of complication from her femoral puncture. She has somebruising. She may have had some recurrent bleeding late after the discharge.She's been advised to avoid vigorous physical activity until the pain hasresolved. She can use alternating heat and cold packs for comfort. She wasadvised to call if her symptoms worsen.She is scheduled for extraction of 13 teeth on 11/03. There is nocontraindication to this procedure from the cardiac point of view. No furtherdiagnostic tests are recommended. Risk of perioperative cardiac complicationsis low, but no guarantees were made. She is on no medications which need to beheld for surgery. There is no known indication for antibiotic prophylaxis.I will see her in 4 months or as needed.Written and verbal health teaching given to patient, patient verbalizesunderstanding and agrees with treatment plan.This note was generated using Iotera voice recognition system, and there may besome incorrect words, spellings, and punctuation that were not noted inchecking the note before saving.DIAGNOSIS FOR VISIT:Left bundle branch blockHematomaHISTORY OF PRESENT ILLNESSStcarol ann Delcid returns for follow-up of her left bundle and for evaluation ofpain in the right groin, where she had her cardiac cath.Her angiography was performed on 10/18. This disclosed normal coronaries. Shenotes that she had some mild bruising after the angiogram. Over the course ofthe last 2 weeks, she has had some spread of the bruising and some generalizeddiscomfort. She's had no change in the color in her foot. There is no pulsatilemass.She's had no chest discomfort. She denies orthopnea, edema.ALLERGIES:ALLERGIESN o Known AllergiesCURRENT OUTPATIENT MEDICATIONS:atorvastatin (LIPITOR) 20 mg tablet Take 1 tablet by mouth once daily.ciprofloxacin HCl (CILOXAN) 0.3 % ophthalmic solution Use 1 Drop in the lefteye four times daily.pregabalin (LYRICA) 50 mg capsule Take 75 mg by mouth three times daily.pregabalin (LYRICA) 75 mg capsule Take 75 mg by mouth twice daily.amitriptyline (ELAVIL) 25 mg tabletCELECOXIB (CELEBREX ORAL) Take by mouth.Aspirin-Acetaminophe n-Caffeine (EXCEDRIN) 250-250-65 mg per tablet Take 2tablets by mouth every 6 hours as needed.Benzonatate 200 mg capsule Take 200 mg by mouth three times daily as needed.meloxicam (MOBIC) 15 mg tablet Take 1 tablet by mouth once daily. Take withfood.methylPREDNISolon e (MEDROL, RONDA,) 4 mg Dose-Pack Take as directedalbuterol HFA (PROAIR HFA) 90 mcg/actuation inhaler Inhale 2 Puffs asinstructed every 4 hours as needed for Wheezing/Shortness of Breath.loratadine (CLARITIN) 10 mg tablet Take 1 tablet by mouth once daily.IBUPROFEN IB ORAL Take 200 mg by mouth five times daily.PHYSICAL EXAMINATION:VITAL SIGNS: BP 120/86 Pulse 86 Wt 179 lb 4.8 oz (81.3kg) LMP 04/24/2010Chest: Clear to percussion and auscultation. Trachea is midline. Air entry isequal. Cardiac: Regular rhythm. S1 and S2 are normal. PMI is nondisplaced.There are no murmurs, rubs or gallops. Carotids are brisk without bruits.JVP is less than 10 cm. Abdomen: Soft and nontender. There are no pulsatilemasses or bruits. No liver enlargement. Bowel sounds are active.Extremities: No edema. Pulses are intact and symmetrical. There is mildecchymosis in the area of the femoral puncture. There is no pulsatile mass. Nodiscrete hematoma can be palpated. The distal pulses are excellent. There is nobruit or thrill. HeStat ultrasound of the right groin was performed and showed no evidence ofpathology. Specifically, there is no evidence for pseudoaneurysm, hematoma orAV fistula.Recent lipid profile was reviewed and is scheduled for repeat.Electronically Signed:Ck Gentile MDFebruary 2017 1:31 PMC: OFE Mondragon MD 11/02/2017 1:35 PM SignedLIFESTYLE CHANGEA healthy lifestyle is the most important component of your overall treatmentplan. Please give serious thought to the following areas and commit to makinglong term changes.EAT A WHOLE FOOD, PLANT BASED DIETThe nutrition your body gets is more important than the medicine you take.What matters most is the overall way you eat. We encourage you to minimize theuse of animal products (which include dairy and all meats except fatty fish)and use whole, unprocessed plant foods to provide your protein, vitamins andother nutrients. We have a lot of information to share with you on this topic. We also hold Shared Medical Appointments, where you can come visit with in the company of other patients and spend over an hour talking aboutthe challenges of changing the way you eat. This is not a ANDquot;dietANDquot;.It is a way of life that you will keep with you.EXERCISE REGULARLYIt is not important to spend hours in the gym, lifting weights and perspiringheavily. A total of 2-3 hours per week of aerobic (causing you to bemoderately short of breath) exercise is sufficient to improve your health.Talk to us before you begin a new exercise program, if you have heart diseaseor experience shortness of breath or chest pain.REDUCE STRESSChronic emotional and physical stress leads to disease. Ways of reducingstress include meditation, visualization, prayer, yoga and other forms ofrelaxation therapy. Consistency is the jmienez. Find a technique that works foryou and do it every day.CULTIVATE RELATIONSHIPSLoneliness and isolation have a major negative impact on health. Seek outothers who can love, care for and nurture you. Avoid hurtful relationships.MAINTAIN IDEAL BODY WEIGHTThe best way to do this is to do all the things above. Our bodies naturallyfind the right weight if we keep moving and feed ourselves the right food. Ifyour BMI is greater than 25, we strongly recommend a referral to a weightmanagement program. Please speak to us or your family physician aboutavailable programs.AVOID NICOTINE IN ALL FORMSThis includes all tobacco products, whether chewed, smoked, vaped, or rubbed onthe skin. Smoking cessation programs, which can make use of tobaccosubstitutes, medications to suppress cravings and behavior management, areavailable. Please contact your family physician about programs in your area.Referring Provider: CK GENTILE [[id number]]Allergies As of Date: 11/02/2017(No Known Allergies)Date Reviewed: 10/04/2017Reviewed by: Griselda Carvajal - Brianne AssessedReason for Visit: Follow Up [171]Primary Visit Diagnosis:Hematoma [T14.8XXA] Other Visit Diagnosis:LBBB (left bundle branch block) [I44.7]Order(s): LEG ARTERIAL PERIPH UNL [facility] [[id number]] Order #: [id number] FUTUREPrescriptions as of 11/02/2017 Sig: ATORVASTATIN 20 MG TABLET Take 1 tablet by mouth once d* CIPROFLOXACIN 0.3 % EYE DROPS Use 1 Drop in the left eye fo* PREGABALIN 50 MG CAPSULE Take 75 mg by mouth three skylar* PREGABALIN 75 MG CAPSULE Take 75 mg by mouth twice gilmar* AMITRIPTYLINE 25 MG TABLET CELEBREX ORAL Take by mouth. SANFQRW-JTMGCWDBVFAFA-DLJD EIN* Take 2 tablets by mouth every* BENZONATATE 200 MG CAPSULE Take 200 mg by mouth three ti* MELOXICAM 15 MG TABLET Take 1 tablet by mouth once d* METHYLPREDNISOLONE 4 MG TABLE* Take as directed ALBUTEROL SULFATE HFA 90 MCG/* Inhale 2 Puffs as instructed * LORATADINE 10 MG TABLET Take 1 tablet by mouth once d* IBUPROFEN IB ORAL Take 200 mg by mouth five skylar*Problem List As Of Date 11/02/2017 Noted Resolved TENSION HEADACHE [G44.209] INVALID FOR* BARTHOLIN'S GLND ABSCESS [N75.1] INVALID FOR* Abnormal Mammogram, Unspecified [R92.8] INVALID FOR* Anxiety [F41.9] INVALID FOR* Sprain of neck [S13.9XXA] INVALID FOR* Tobacco abuse [Z72.0] INVALID FOR* Cervical radiculopathy [M54.12] INVALID FOR* Other instructions from your clinician: LIFESTYLE CHANGE A healthy lifestyle is the most important component of your overall treatment plan. Please give serious thought to the following areas and commit to making shelter changes. EAT A WHOLE FOOD, PLANT BASED DIET The nutrition your body gets is more important than the medicine you take. What matters most is the overall way you eat. We encourage you to minimize the use of animal products (which include dairy and all meats except fatty fish) and use whole, unprocessed plant foods to provide your protein, vitamins and other nutrients. We have a lot of information to share with you on this topic. We also hold Shared Medical Appointments, where you can come visit with Dr. Gentile in the company of other patients and spend over an hour talking about the challenges of changing the way you eat. This is not a diet. It is a way of life that you will keep with you. EXERCISE REGULARLY It is not important to spend hours in the gym, lifting weights and perspiring heavily. A total of 2-3 hours per week of aerobic (causing you to be moderately short of breath) exercise is sufficient to improve your health. Talk to us before you begin a new exercise program, if you have heart disease or experience shortness of breath or chest pain. REDUCE STRESS Chronic emotional and physical stress leads to disease. Ways of reducing stress include meditation, visualization, prayer, yoga and other forms of relaxation therapy. Consistency is the jimenez. Find a technique that works for you and do it every day. CULTIVATE RELATIONSHIPS Loneliness and isolation have a major negative impact on health. Seek out others who can love, care for and nurture you. Avoid hurtful relationships. MAINTAIN IDEAL BODY WEIGHT The best way to do this is to do all the things above. Our bodies naturally find the right weight if we keep moving and feed ourselves the right food. If your BMI is greater than 25, we strongly recommend a referral to a weight management program. Please speak to us or your family physician about available programs. AVOID NICOTINE IN ALL FORMS This includes all tobacco products, whether chewed, smoked, vaped, or rubbed on the skin. Smoking cessation programs, which can make use of tobacco substitutes, medications to suppress cravings and behavior management, are available. Please contact your family physician about programs in your area.Follow-up and Disposition History RecordedClassic SmartForms filed during this visit:Extended VitalsEncounter Number: [id number] Status:Closed by CK GENTILE MD on 11/02/17 [facility] 11-02-2017 [facility] Telephone (AGCARDWST) THUY DELCID ([id number]) [address] [facility]17 CK GENTILE AGCARDWST During your visit today, we recorded the following information about you:Vielka Beal LPN 11/02/2017 2:26 PM SignedSee forms dropped off by patient.Jim Jacob MD 11/02/2017 4:22 PM SignedDone.Arron Rendon, RN, RN 11/03/2017 5:07 PM Jaimee Gentile P [facility] ? Please fax copy of this note to her dentist. ??Vielka Beal LPN 11/04/2017 3:01 PM SignedFaxed.Po Jacob, RN, RN 11/09/2017 9:15 AM SignedThe form is a request for medical consultation from [facility] (ph:[phone] fx: [phone]). Patient states that it was never received. Irefaxed it with OV note.Allergies As of Date: 11/02/2017(No Known Allergies)Date Reviewed: 10/04/2017Reviewed by: Griselda Carvajal - Fully AssessedReason for Visit: Forms [913]Prescriptions as of 11/02/2017 Sig: ATORVASTATIN 20 MG TABLET Take 1 tablet by mouth once d* CIPROFLOXACIN 0.3 % EYE DROPS Use 1 Drop in the left eye fo* PREGABALIN 50 MG CAPSULE Take 75 mg by mouth three skylar* PREGABALIN 75 MG CAPSULE Take 75 mg by mouth twice gilmar* AMITRIPTYLINE 25 MG TABLET CELEBREX ORAL Take by mouth. [id number]-PRJP EIN* Take 2 tablets by mouth every* BENZONATATE 200 MG CAPSULE Take 200 mg by mouth three ti* MELOXICAM 15 MG TABLET Take 1 tablet by mouth once d* METHYLPREDNISOLONE 4 MG TABLE* Take as directed ALBUTEROL SULFATE HFA 90 MCG/* Inhale 2 Puffs as instructed * LORATADINE 10 MG TABLET Take 1 tablet by mouth once d* IBUPROFEN IB ORAL Take 200 mg by mouth five skylar*Problem List As Of Date 11/02/2017 Noted Resolved TENSION HEADACHE [G44.209] INVALID FOR* BARTHOLIN'S GLND ABSCESS [N75.1] INVALID FOR* Abnormal Mammogram, Unspecified [R92.8] INVALID FOR* Anxiety [F41.9] INVALID FOR* Sprain of neck [S13.9XXA] INVALID FOR* Tobacco abuse [Z72.0] INVALID FOR* Cervical radiculopathy [M54.12] INVALID FOR* Status:Closed by VIELKA BEAL LPN on 11/04/17 [facility] PROGRESSon 11-02-2017 PROGRESS HNO ID: [id number] thor: kC Olvera: (none)Author Type: PhysicianType: Progress NotesFiled: 11/02/2017 3:19 PMNote Text:PERTINENT CARDIAC HISTORYLBBBFamily history premature ASHDTobaccoismCardiomyopat hy - mild nonischemicNear syncopeTobaccoismADHERENCE TO GUIDELINESACE-I or ARB for HF with prior LVEF<40 (NQF 0081) - N/AASA or Plavix for ASHD (NQF 0067) - N/ABeta brown for ASHD with prior MO or prior LVEF<40 (NQF 0070) - N/ABeta brown for HF with prior LVEF<40 (NQF 0083) - N/AACE-I or ARB for ASHD with DM or prior LVEF<40 (NQF 0066) - N/AStatin therapy for ASHD or FHL or DM - N/ABMI documented and plan if >25 (NQF 0421) - lifestyle recommendation formTobacco use screening and referral (NQ 0028) - lifestyle recommendationformRecommen dation for whole food, plant based diet - lifestyle recommendationformCLINICAL IMPRESSION/PLAN:Thuy Delcid has left bundle branch block without evidence ofunderlying ischemic heart disease or cardiomyopathy. We will continue tomonitor this. Her lipid profile will be checked as scheduled.There is no evidence of complication from her femoral puncture. She hassome bruising. She may have had some recurrent bleeding late after thedischarge. She's been advised to avoid vigorous physical activity untilthe pain has resolved. She can use alternating heat and cold packs forcomfort. She was advised to call if her symptoms worsen.She is scheduled for extraction of 13 teeth on 11/03. There is nocontraindication to this procedure from the cardiac point of view. Nofurther diagnostic tests are recommended. Risk of perioperative cardiaccomplications is low, but no guarantees were made. She is on nomedications which need to be held for surgery. There is no knownindication for antibiotic prophylaxis.I will see her in 4 months or as needed.Written and verbal health teaching given to patient, patient verbalizesunderstanding and agrees with treatment plan.This note was generated using Iotera voice recognition system, and theremay be some incorrect words, spellings, and punctuation that were notnoted in checking the note before saving.DIAGNOSIS FOR VISIT:Left bundle branch blockHematomaHISTORY OF PRESENT ILLNESSThuy Delcid returns for follow-up of her left bundle and forevaluation of pain in the right groin, where she had her cardiac cath.Her angiography was performed on 10/18. This disclosed normal coronaries.She notes that she had some mild bruising after the angiogram. Over thecourse of the last 2 weeks, she has had some spread of the bruising andsome generalized discomfort. She's had no change in the color in her foot.There is no pulsatile mass.She's had no chest discomfort. She denies orthopnea, edema.ALLERGIES:ALLERGIESN o Known AllergiesCURRENT OUTPATIENT MEDICATIONS:atorvastatin (LIPITOR) 20 mg tablet Take 1 tablet by mouth once daily.ciprofloxacin HCl (CILOXAN) 0.3 % ophthalmic solution Use 1 Drop in theleft eye four times daily.pregabalin (LYRICA) 50 mg capsule Take 75 mg by mouth three times daily.pregabalin (LYRICA) 75 mg capsule Take 75 mg by mouth twice daily.amitriptyline (ELAVIL) 25 mg tabletCELECOXIB (CELEBREX ORAL) Take by mouth.Aspirin-Acetaminophe n-Caffeine (EXCEDRIN) 250-250-65 mg per tablet Take 2tablets by mouth every 6 hours as needed.Benzonatate 200 mg capsule Take 200 mg by mouth three times daily asneeded.meloxicam (MOBIC) 15 mg tablet Take 1 tablet by mouth once daily. Takewith food.methylPREDNISolone (MEDROL, RONDA,) 4 mg Dose-Pack Take as directedalbuterol HFA (PROAIR HFA) 90 mcg/actuation inhaler Inhale 2 Puffs asinstructed every 4 hours as needed for Wheezing/Shortness of Breath.loratadine (CLARITIN) 10 mg tablet Take 1 tablet by mouth once daily.IBUPROFEN IB ORAL Take 200 mg by mouth five times daily.PHYSICAL EXAMINATION:VITAL SIGNS: BP 120/86 Pulse 86 Wt 179 lb 4.8 oz (81.3kg) LMP04/24/2010Chest: Clear to percussion and auscultation. Trachea is midline. Airentry is equal. Cardiac: Regular rhythm. S1 and S2 are normal. PMI isnondisplaced. There are no murmurs, rubs or gallops. Carotids are briskwithout bruits. JVP is less than 10 cm. Abdomen: Soft and nontender.There are no pulsatile masses or bruits. No liver enlargement. Bowelsounds are active. Extremities: No edema. Pulses are intact andsymmetrical. There is mild ecchymosis in the area of the femoralpuncture. There is no pulsatile mass. No discrete hematoma can bepalpated. The distal pulses are excellent. There is no bruit or thrill. HeStat ultrasound of the right groin was performed and showed no evidence ofpathology. Specifically, there is no evidence for pseudoaneurysm, hematomaor AV fistula.Recent lipid profile was reviewed and is scheduled for repeat.Electronically Signed:Ck Gentile MDFebruary 2017 1:31 [facility]: Baldo Ovalle III MD [facility] CNOVon 10-04-2017 CNOV Office Visit (AGCARDWST) THUY DELCID ([id number]) 1975 FDa Time Provider Department10/04/17 11:00 AM CK GENTILE AGCARDWST During your visit today, we recorded the following information about you: Pulse Blood pressure Weight Height 72/minute 108/80 80.6 kg 1.626 Jesús Gentile MD 10/04/2017 11:29 AM SignedPERTINENT CARDIAC HISTORYLBBBFamily history premature ASHDTobaccoismCardiomyopat hy - mild nonischemicNear syncopeTobaccoismADHERENCE TO GUIDELINESACE-I or ARB for HF with prior LVEFANDlt;40 (NQF 0081) - N/AASA or Plavix for ASHD (NQF 0067) - N/ABeta brown for ASHD with prior MO or prior LVEFANDlt;40 (NQF 0070) - N/ABeta brown for HF with prior LVEFANDlt;40 (NQF 0083) - N/AACE-I or ARB for ASHD with DM or prior LVEFANDlt;40 (NQF 0066) - N/AStatin therapy for ASHD or FHL or DM - N/ABMI documented and plan if ANDgt;25 (NQF 0421) - lifestyle recommendation formTobacco use screening and referral (NQF 0028) - lifestyle recommendation formRecommendation for whole food, plant based diet - lifestyle recommendation formCLINICAL IMPRESSION/PLAN:Thuy Delcid continues to have nonspecific symptoms of chest tightness,lightheadedness, palpitations. She has persistent abnormal ejection fractionand unexplained left bundle branch block. Her most recent stress test showssome attenuation and ischemia cannot be excluded.Given the ongoing symptoms and unexplained cardiomyopathy, I have recommendedto her that she undergo coronary angiogram to make sure there is no obstructivecoronary disease. [facility]She has again been reminded not to smoke. We discussed results of her recenttesting showing elevated lipids.She will have basic profile, INR chest x-ray today and angiogram will be set upfor her. I will see her back after the cath and we will initiate therapy withbeta brown and/or JUDITH inhibitor. Her resting bradycardia and low bloodpressure will make therapy limited.Written and verbal health teaching given to patient, patient verbalizesunderstanding and agrees with treatment plan.This note was generated using Iotera voice recognition system, and there may besome incorrect words, spellings, and punctuation that were not noted inchecking the note before saving.DIAGNOSIS FOR VISIT:Abnormal stress testLeft bundle branch blockCardiomyopathyHISTORY OF PRESENT ILLNESSThuy Delcid returns for follow-up of her left bundle, chest pain andpalpitations.She reports that she continue to have intermittent episodes of squeezing in thechest which is not related to physical activity. She's had occasionalfluttering lasting seconds. She's had no baldo syncope but occasional episodesof lightheadedness.She recently completed a 30 day event monitor. She was found to have no pauses.There is no significant arrhythmia.Stress test showed persistent mild cardiomyopathy with ejection fraction of50%. There was anterior septal attenuation possibly related to breast shadow orleft bundle branch block. Ischemia cannot be excluded.ALLERGIES:ALLERGI ESNo Known AllergiesCURRENT OUTPATIENT MEDICATIONS:atorvastatin (LIPITOR) 20 mg tablet Take 1 tablet by mouth once daily.pregabalin (LYRICA) 50 mg capsule Take 75 mg by mouth three times daily.amitriptyline (ELAVIL) 25 mg tabletAspirin-Acetaminophe n-Caffeine (EXCEDRIN) 250-250-65 mg per tablet Take 2tablets by mouth every 6 hours as needed.albuterol HFA (PROAIR HFA) 90 mcg/actuation inhaler Inhale 2 Puffs asinstructed every 4 hours as needed for Wheezing/Shortness of Breath.IBUPROFEN IB ORAL Take 200 mg by mouth five times daily.ciprofloxacin HCl (CILOXAN) 0.3 % ophthalmic solution Use 1 Drop in the lefteye four times daily.pregabalin (LYRICA) 75 mg capsule Take 75 mg by mouth twice daily.CELECOXIB (CELEBREX ORAL) Take by mouth.Benzonatate 200 mg capsule Take 200 mg by mouth three times daily as needed.meloxicam (MOBIC) 15 mg tablet Take 1 tablet by mouth once daily. Take withfood.methylPREDNISolon e (MEDROL, RONDA,) 4 mg Dose-Pack Take as directedloratadine (CLARITIN) 10 mg tablet Take 1 tablet by mouth once daily.PHYSICAL EXAMINATION:VITAL SIGNS: BP 108/80 Pulse 72 Ht 5' 4ANDquot; (1.63m) Wt 177 lb 12.8 oz(80.7kg) LMP 04/24/2010 BMI 30.50 kg/(m2).Chest: Clear to percussion and auscultation. Trachea is midline. Air entry isequal. Cardiac: Regular rhythm. S2 is paradoxically split PMI isnondisplaced. There are no murmurs, rubs or gallops. Carotids are briskwithout bruits. JVP is less than 10 cm. Abdomen: Soft and nontender. Thereare no pulsatile masses or bruits. No liver enlargement. Bowel sounds areactive. Extremities: No edema. Pulses are intact and symmetrical.Stress test is as described above.Electronically Signed:Ck Gentile MDOctober 04, 2017 11:13 [facility]: Baldo Ovalle, III MDReferring Provider: CK GENTILE [[id number]]Allergies As of Date: 10/04/2017(No Known Allergies)Date Reviewed: 10/04/2017Reviewed by: Griselda Carvajal - Fully AssessedReason for Visit: Follow Up [171]Primary Visit Diagnosis:Abnormal stress test [R94.39] Other Visit Diagnoses:LBBB (left bundle branch block) [I44.7] Chest pain, unspecified type [R07.9]Order(s):BASIC METABOLIC PNL [SQBMP] Order #: [id number] FUTURE PROTHROMBIN TIME/PT [SQPT] Order #: [id number] FUTURE XR CHEST 2V FRONTAL/LAT [8311299] Order #: [id number] FUTURE LEFT HEART CATH,PERCUTANEOUS [[id number]] Order #: [id number]: 1Prescriptions as of 10/04/2017 Sig: ATORVASTATIN 20 MG TABLET Take 1 tablet by mouth once d* PREGABALIN 50 MG CAPSULE Take 75 mg by mouth three skylar* AMITRIPTYLINE 25 MG TABLET [id number] EIN* Take 2 tablets by mouth every* ALBUTEROL SULFATE HFA 90 MCG/* Inhale 2 Puffs as instructed * IBUPROFEN IB ORAL Take 200 mg by mouth five skylar* CIPROFLOXACIN 0.3 % EYE DROPS Use 1 Drop in the left eye fo* PREGABALIN 75 MG CAPSULE Take 75 mg by mouth twice gilmar* CELEBREX ORAL Take by mouth. BENZONATATE 200 MG CAPSULE Take 200 mg by mouth three ti* MELOXICAM 15 MG TABLET Take 1 tablet by mouth once d* METHYLPREDNISOLONE 4 MG TABLE* Take as directed LORATADINE 10 MG TABLET Take 1 tablet by mouth once d*Problem List As Of Date 10/04/2017 Noted Resolved TENSION HEADACHE [G44.209] INVALID FOR* BARTHOLIN'S GLND ABSCESS [N75.1] INVALID FOR* Abnormal Mammogram, Unspecified [R92.8] INVALID FOR* Anxiety [F41.9] INVALID FOR* Sprain of neck [S13.9XXA] INVALID FOR* Tobacco abuse [Z72.0] INVALID FOR* Cervical radiculopathy [M54.12] INVALID FOR*Follow-up and Disposition History RecordedEncounter Number: [id number] Status:Closed by CK GENTILE MD on 10/04/17 [facility] PROGRESSon 10-04-2017 PROGRESS HNO ID: [id number] thor: Ck Olvera: (none)Author Type: PhysicianType: Progress NotesFiled: 10/04/2017 11:29 AMNote Text:PERTINENT CARDIAC HISTORYLBBBFamily history premature ASHDTobaccoismCardiomyopat hy - mild nonischemicNear syncopeTobaccoismADHERENCE TO GUIDELINESACE-I or ARB for HF with prior LVEF<40 (NQF 0081) - N/AASA or Plavix for ASHD (NQF 0067) - N/ABeta brown for ASHD with prior MO or prior LVEF<40 (NQF 0070) - N/ABeta brown for HF with prior LVEF<40 (NQF 0083) - N/AACE-I or ARB for ASHD with DM or prior LVEF<40 (NQF 0066) - N/AStatin therapy for ASHD or FHL or DM - N/ABMI documented and plan if >25 (NQF 0421) - lifestyle recommendation formTobacco use screening and referral (NQF 0028) - lifestyle recommendationformRecommen dation for whole food, plant based diet - lifestyle recommendationformCLINICAL IMPRESSION/PLAN:Thuy Delcid continues to have nonspecific symptoms of chest tightness,lightheadedness, palpitations. She has persistent abnormal ejectionfraction and unexplained left bundle branch block. Her most recent stresstest shows some attenuation and ischemia cannot be excluded.Given the ongoing symptoms and unexplained cardiomyopathy, I haverecommended to her that she undergo coronary angiogram to make sure thereis no obstructive coronary disease. This will be set up for her at [facility] in the near future.She has again been reminded not to smoke. We discussed results of herrecent testing showing elevated lipids.She will have basic profile, INR chest x-ray today and angiogram will beset up for her. I will see her back after the cath and we will initiatetherapy with beta brown and/or JUDITH inhibitor. Her resting bradycardiaand low blood pressure will make therapy limited.Written and verbal health teaching given to patient, patient verbalizesunderstanding and agrees with treatment plan.This note was generated using Iotera voice recognition system, and theremay be some incorrect words, spellings, and punctuation that were notnoted in checking the note before saving.DIAGNOSIS FOR VISIT:Abnormal stress testLeft bundle branch blockCardiomyopathyHISTORY OF PRESENT ILLNESSThuy Delcid returns for follow-up of her left bundle, chest pain andpalpitations.She reports that she continue to have intermittent episodes of squeezingin the chest which is not related to physical activity. She's hadoccasional fluttering lasting seconds. She's had no baldo syncope butoccasional episodes of lightheadedness.She recently completed a 30 day event monitor. She was found to have nopauses. There is no significant arrhythmia.Stress test showed persistent mild cardiomyopathy with ejection fractionof 50%. There was anterior septal attenuation possibly related to breastshadow or left bundle branch block. Ischemia cannot be excluded.ALLERGIES:ALLERGI ESNo Known AllergiesCURRENT OUTPATIENT MEDICATIONS:atorvastatin (LIPITOR) 20 mg tablet Take 1 tablet by mouth once daily.pregabalin (LYRICA) 50 mg capsule Take 75 mg by mouth three times daily.amitriptyline (ELAVIL) 25 mg tabletAspirin-Acetaminophe n-Caffeine (EXCEDRIN) 250-250-65 mg per tablet Take 2tablets by mouth every 6 hours as needed.albuterol HFA (PROAIR HFA) 90 mcg/actuation inhaler Inhale 2 Puffs asinstructed every 4 hours as needed for Wheezing/Shortness of Breath.IBUPROFEN IB ORAL Take 200 mg by mouth five times daily.ciprofloxacin HCl (CILOXAN) 0.3 % ophthalmic solution Use 1 Drop in theleft eye four times daily.pregabalin (LYRICA) 75 mg capsule Take 75 mg by mouth twice daily.CELECOXIB (CELEBREX ORAL) Take by mouth.Benzonatate 200 mg capsule Take 200 mg by mouth three times daily asneeded.meloxicam (MOBIC) 15 mg tablet Take 1 tablet by mouth once daily. Takewith food.methylPREDNISolone (MEDROL, RONDA,) 4 mg Dose-Pack Take as directedloratadine (CLARITIN) 10 mg tablet Take 1 tablet by mouth once daily.PHYSICAL EXAMINATION:VITAL SIGNS: BP 108/80 Pulse 72 Ht 5' 4 (1.63m) Wt 177 lb 12.8 oz(80.7kg) LMP 04/24/2010 BMI 30.50 kg/(m2).Chest: Clear to percussion and auscultation. Trachea is midline. Airentry is equal. Cardiac: Regular rhythm. S2 is paradoxically split PMIis nondisplaced. There are no murmurs, rubs or gallops. Carotids arebrisk without bruits. JVP is less than 10 cm. Abdomen: Soft andnontender. There are no pulsatile masses or bruits. No liverenlargement. Bowel sounds are active. Extremities: No edema. Pulses areintact and symmetrical.Stress test is as described above.Electronically Signed:Macy Rendonuary 2017 11:13 [facility]: OFE Mondragon MD [facility] CNOVon 09-02-2017 CNOV Office Visit (AGCARDWST) THUY DELCID ([id number]) 1975 FDate Time Provider Pwqzfpecyl66/22/17 2:00 PM CK GENTILE AGCARDWST During your visit today, we recorded the following information about you: Pulse Blood pressure Weight Height 91/minute 110/80 79.7 kg 1.626 Jesús Gentile MD 09/06/2017 3:34 PM SignedPERTINENT CARDIAC HISTORYLBBBFamily history premature ASHDTobaccoismCardiomyopat hy - mild nonischemicNear syncopeTobaccoismADHERENCE TO GUIDELINESACE-I or ARB for HF with prior LVEFANDlt;40 (NQF 0081) - N/AASA or Plavix for ASHD (NQF 0067) - N/ABeta brown for ASHD with prior MO or prior LVEFANDlt;40 (NQF 0070) - N/ABeta brown for HF with prior LVEFANDlt;40 (NQF 0083) - N/AACE-I or ARB for ASHD with DM or prior LVEFANDlt;40 (NQF 0066) - N/AStatin therapy for ASHD or FHL or DM - N/ABMI documented and plan if ANDgt;25 (NQF 0421) - lifestyle recommendation formTobacco use screening and referral (NQF 0028) - lifestyle recommendation formRecommendation for whole food, plant based diet - lifestyle recommendation formCLINICAL IMPRESSION/PLAN:Thuy Delcid has left bundle branch block of unclear etiology. This occursin the setting of strong family history of premature vascular disease and atleast one family member who had sudden .I recommended that we repeat her Lexiscan nuclear stress test to assess LVfunction as well as the presence of ischemia, given her exercise intolerance.It addition, she will undergo an event monitor for assessment of herpalpitations and near syncope.Blood work including CBC, TSH, basic profile, magnesium and lipid profile willbe performed.Tentatively I will see her in one month or as needed. She's been advised tocontact me if she has progression of any of the symptoms.Written and verbal health teaching given to patient, patient verbalizesunderstanding and agrees with treatment plan.This note was generated using Iotera voice recognition system, and there may besome incorrect words, spellings, and punctuation that were not noted inchecking the note before saving.DIAGNOSIS FOR VISIT:Left bundle branch blockNear syncopeHISTORY OF PRESENT ILLNESSThuy Delcid is a 42-year-old woman who is seen at her request forcardiology follow-up. She has had recent onset left bundle branch block ofunclear etiology. This was detected at the time of a preoperative EKG.Evaluation included stress test which showed ejection fraction at lower limitsnormal. She was seen by Dr. Leach in the past. [facility]She reports a strong family history of vascular disease and premature ischemicheart disease. In addition, she had a maternal aunt who suddenly at 22years of age, of presumably cardiac causes.She's had occasional squeezing in the chest which is mostly with emotionalstress. She's had no exertional chest tightness, but has noticed decreasedexercise tolerance over the last year. She's had no orthopnea or edema. Shedenies TIAs, amaurosis, claudication. She occasionally notes aANDquot;flutterANDquot; in the chest lasting seconds. She's had intermittentepisodes where she becomes lightheaded, even at rest while sitting. She's hadnear-syncope under these circumstances. She's had no episodes of baldo syncope.She smokes. Cholesterol has been borderline high in the past but has not beenchecked for 10 years.ALLERGIES:ALLERGIESN o Known AllergiesCURRENT OUTPATIENT MEDICATIONS:pregabalin (LYRICA) 50 mg capsule Take 75 mg by mouth three times daily.amitriptyline (ELAVIL) 25 mg tabletAspirin-Acetaminophe n-Caffeine (EXCEDRIN) 250-250-65 mg per tablet Take 2tablets by mouth every 6 hours as needed.albuterol HFA (PROAIR HFA) 90 mcg/actuation inhaler Inhale 2 Puffs asinstructed every 4 hours as needed for Wheezing/Shortness of Breath.IBUPROFEN IB ORAL Take 200 mg by mouth five times daily.regadenoson (LEXISCAN) 0.4 mg/5 mL syrg Inject 5 mL intravenously one time onlyfor 1 dose. Give IV push over 10 seconds and follow with 5 ml of normal salineciprofloxacin HCl (CILOXAN) 0.3 % ophthalmic solution Use 1 Drop in the lefteye four times daily.pregabalin (LYRICA) 75 mg capsule Take 75 mg by mouth twice daily.CELECOXIB (CELEBREX ORAL) Take by mouth.Benzonatate 200 mg capsule Take 200 mg by mouth three times daily as needed.meloxicam (MOBIC) 15 mg tablet Take 1 tablet by mouth once daily. Take withfood.methylPREDNISolon e (MEDROL, RONDA,) 4 mg Dose-Pack Take as directedloratadine (CLARITIN) 10 mg tablet Take 1 tablet by mouth once daily.PAST MEDICAL HISTORYDiagnosis Date- Anxiety state, unspecified 2002- Carcinoma in situ of cervix uteri 2000 [facility]/ANNA MARIE III- Cyst of Bartholin's gland bilateral, recurrent- Displacement of cervical intervertebral disc without myelopathy CENTRAL DISC EXTRUSION AT C5/6 WITH MODERATE COMPRESSION OF CORD- Hidradenitis FREQUENT RECURRENCE- Other and unspecified hyperlipidemia- Other forms of migraine- Spinal stenosis in cervical region- Tobacco abuse 11/27/2012- Tobacco use disorderPAST SURGICAL HISTORYProcedure Laterality Date- CERVIX UTERI CONIZA LP ELCTRO EXCI 10/2000 [facility]/ANNA MARIE III- CLOSED TREAT WRIST DISLOCATION- LIGATE FALLOPIAN TUBE- PAST SURGICAL HISTORY OF 10/2006 bartholin gland's removed- REMOVAL OF TONSILS,ANDlt;12 Y/O- SURGERY (GENERAL SURGERY) CONSULT 05/24/2016 right knee surgery- TOOTH ROOT REMOVAL wisdom x 2, other molars x 4-general- VAGINAL HYSTERECTOMY 05/14/2010 Hysterectomy, vaginalFAMILY HISTORYProblem Relation Age of Onset- Diabetes Mother- Hypertension Mother- Heart Mother MO X 2- Stroke Father- Diabetes Maternal Grandmother- OVARIAN CANCER [OTHER] Maternal Aunt X2 PLUS ONE MATERNAL COUSIN- Hypertension Maternal Aunt X 3- Hypertension Maternal Uncle- DIABETIC [OTHER] Maternal Aunt X 2Social History Marital status: Spouse name: candelaria Years of education: 14 Number of children: 2Occupational 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 Respiratory: No productivecough. Cardiac: As noted above. GI: No melena. : No dysuria.Musculoskeletal: No myalgias. Neurologic: No strokes. Psychiatric: Nodepression. Endocrine: No diabetes. Hematologic: No anemia.PHYSICAL EXAMINATION: S/he is alert and in no distressVITAL SIGNS: BP 110/80 Pulse 91 Ht 5' 4ANDquot; (1.63m) Wt 175 lb 12.8 oz(79.7kg) LMP 04/24/2010 BMI 30.16 kg/(m2).SHEENT: Skin is warm and dry. Pupils are round and reactive. Retinal vesselsare grossly unremarkable. No xanthelasmas appreciated. Pharynx is benign.There is no oral cyanosis. Neck: supple. No adenopathy or thyroidenlargement. Chest: Clear to percussion and auscultation. Trachea is midline. Air entry is equal. There is no chest wall tenderness. Cardiac: Regularrhythm. S2 is paradoxically split. PMI is nondisplaced. There are nomurmurs, rubs or gallops. No click is heard. Carotids are brisk withoutbruits. JVP is less than 10 cm. Abdomen: Soft and nontender. Exam iscompromised by obesity. There are no pulsatile masses or bruits. No liverenlargement. Bowel sounds are active. : Deferred. Extremities: No edema.Pulses are intact and symmetrical. No clubbing or cyanosis. No femoralbruits. Neurologic: Grossly normal motor and sensory. S/he is alert andoriented x4. Musculoskeletal: No joint deformities.EKG shows sinus rhythm with left bundle branch block. There is no significantchange.Prior studies included echocardiogram showing normal LV function. There is nosignificant valve disease.Pharmacologic stress test showed no evidence of ischemia. Ejection fraction wascalculated at 50%.No recent labs are available.Electronically Signed:MARCUS Rendonecember 2016 2:40 PMCC: Baldo Ovalle, OFE Gentile MD 09/02/2017 2:40 PM SignedLIFESTYLE CHANGEA healthy lifestyle is the most important component of your overall treatmentplan. Please give serious thought to the following areas and commit to makinglong term changes.EAT A WHOLE FOOD, PLANT BASED DIETThe nutrition your body gets is more important than the medicine you take.What matters most is the overall way you eat. We encourage you to minimize theuse of animal products (which include dairy and all meats except fatty fish)and use whole, unprocessed plant foods to provide your protein, vitamins andother nutrients. We have a lot of information to share with you on this topic. We also hold Shared Medical Appointments, where you can come visit with in the company of other patients and spend over an hour talking aboutthe challenges of changing the way you eat. This is not a ANDquot;dietANDquot;.It is a way of life that you will keep with you.EXERCISE REGULARLYIt is not important to spend hours in the gym, lifting weights and perspiringheavily. A total of 2-3 hours per week of aerobic (causing you to bemoderately short of breath) exercise is sufficient to improve your health.Talk to us before you begin a new exercise program, if you have heart diseaseor experience shortness of breath or chest pain.REDUCE STRESSChronic emotional and physical stress leads to disease. Ways of reducingstress include meditation, visualization, prayer, yoga and other forms ofrelaxation therapy. Consistency is the jimenez. Find a technique that works foryou and do it every day.CULTIVATE RELATIONSHIPSLoneliness and isolation have a major negative impact on health. Seek outothers who can love, care for and nurture you. Avoid hurtful relationships.MAINTAIN IDEAL BODY WEIGHTThe best way to do this is to do all the things above. Our bodies naturallyfind the right weight if we keep moving and feed ourselves the right food. Ifyour BMI is greater than 25, we strongly recommend a referral to a weightmanagement program. Please speak to us or your family physician aboutavailable programs.AVOID NICOTINE IN ALL FORMSThis includes all tobacco products, whether chewed, smoked, vaped, or rubbed onthe skin. Smoking cessation programs, which can make use of tobaccosubstitutes, medications to suppress cravings and behavior management, areavailable. Please contact your family physician about programs in your area.Referring Provider: SELF [[id number]]Allergies As of Date: 09/02/2017(No Known Allergies)Date Reviewed: 09/02/2017Reviewed by: Griselda De Oliveira) Marika - Fully AssessedReason for Visit: New Patient [172]Primary Visit Diagnosis:LBBB (left bundle branch block) [I44.7] Other Visit Diagnosis:Cardiac syncope [R55]Order(s):ECG B/O W INTERP (MED OFFICE) [ECG06] Order #: [id number] NM CARDIAC PERF STRESS/PHARM [1364346] Order #: [id number] FUTURE [] regadenoson (LEXISCAN) 0.4 mg/5 mL syrgInject 5 mL intravenously one time only for 1 dose. Give IV push over 10 seconds and follow with 5 ml of normal salineDisp: 5 mLRfl: 0 IV START - SPECIFY [[id number]] Order #: [id number]: 1 IV DISCONTINUE [[id number]] Order #: [id number]: 1 CBC [SQCBC] Order #: [id number] FUTURE TSH BLD [SQTSH] Order #: [id number] FUTURE MAGNESIUM BLD [SQMG1] Order #: [id number] FUTURE LIPID PANEL BASIC [SQLIPB] Order #: [id number] FUTURE BASIC METABOLIC PNL [SQBMP] Order #: [id number] FUTURE EVENT MONITOR [[id number]] Order #: [id number]: 1Prescriptions as of 09/02/2017 Sig: PREGABALIN 50 MG CAPSULE Take 75 mg by mouth three skylar* AMITRIPTYLINE 25 MG TABLET SEBSCPN-[id number] EIN* Take 2 tablets by mouth every* ALBUTEROL SULFATE HFA 90 MCG/* Inhale 2 Puffs as instructed * IBUPROFEN IB ORAL Take 200 mg by mouth five skylar* REGADENOSON 0.4 MG/5 ML INTRA* Inject 5 mL intravenously one* CIPROFLOXACIN 0.3 % EYE DROPS Use 1 Drop in the left eye fo* PREGABALIN 75 MG CAPSULE Take 75 mg by mouth twice gilmar* CELEBREX ORAL Take by mouth. BENZONATATE 200 MG CAPSULE Take 200 mg by mouth three ti* MELOXICAM 15 MG TABLET Take 1 tablet by mouth once d* METHYLPREDNISOLONE 4 MG TABLE* Take as directed LORATADINE 10 MG TABLET Take 1 tablet by mouth once d*Medication notes this encounter CIPROFLOXACIN 0.3 % EYE DROPS >> Griselda Carvajal MA 09/02/2017 2:13 PM >> GRISELDA CARVAJAL MA Fri Sep 02, 2017 2:13 PM Not takingProblem List As Of Date 09/02/2017 Noted Resolved TENSION HEADACHE [G44.209] INVALID FOR* BARTHOLIN'S GLND ABSCESS [N75.1] INVALID FOR* Abnormal Mammogram, Unspecified [R92.8] INVALID FOR* Anxiety [F41.9] INVALID FOR* Sprain of neck [S13.9XXA] INVALID FOR* Tobacco abuse [Z72.0] INVALID FOR* Cervical radiculopathy [M54.12] INVALID FOR* Other instructions from your clinician: LIFESTYLE CHANGE A healthy lifestyle is the most important component of your overall treatment plan. Please give serious thought to the following areas and commit to making shelter changes. EAT A WHOLE FOOD, PLANT BASED DIET The nutrition your body gets is more important than the medicine you take. What matters most is the overall way you eat. We encourage you to minimize the use of animal products (which include dairy and all meats except fatty fish) and use whole, unprocessed plant foods to provide your protein, vitamins and other nutrients. We have a lot of information to share with you on this topic. We also hold Shared Medical Appointments, where you can come visit with Dr. Gentile in the company of other patients and spend over an hour talking about the challenges of changing the way you eat. This is not a diet. It is a way of life that you will keep with you. EXERCISE REGULARLY It is not important to spend hours in the gym, lifting weights and perspiring heavily. A total of 2-3 hours per week of aerobic (causing you to be moderately short of breath) exercise is sufficient to improve your health. Talk to us before you begin a new exercise program, if you have heart disease or experience shortness of breath or chest pain. REDUCE STRESS Chronic emotional and physical stress leads to disease. Ways of reducing stress include meditation, visualization, prayer, yoga and other forms of relaxation therapy. Consistency is the jimenez. Find a technique that works for you and do it every day. CULTIVATE RELATIONSHIPS Loneliness and isolation have a major negative impact on health. Seek out others who can love, care for and nurture you. Avoid hurtful relationships. MAINTAIN IDEAL BODY WEIGHT The best way to do this is to do all the things above. Our bodies naturally find the right weight if we keep moving and feed ourselves the right food. If your BMI is greater than 25, we strongly recommend a referral to a weight management program. Please speak to us or your family physician about available programs. AVOID NICOTINE IN ALL FORMS This includes all tobacco products, whether chewed, smoked, vaped, or rubbed on the skin. Smoking cessation programs, which can make use of tobacco substitutes, medications to suppress cravings and behavior management, are available. Please contact your family physician about programs in your area.Prescriptions ordered this encounter Disp Refills Start End REGADENOSON 0.4 MG/5 ML INTRAVENOUS * 5 mL 0 09/02/2017 09/02/2017 Class: In Office Route: INTRAVENOUS Sig: Inject 5 mL intravenously one time only for 1 dose. Give IV push over 10 seconds and follow with 5 ml of normal salineFollow-up and Disposition History RecordedEncounter Number: [id number] Status:Closed by CK GENTILE MD on 09/06/17 [facility] PROGRESSon 09-02-2017 PROGRESS HNO ID: [id number] thor: Ck Olvera: (none)Author Type: PhysicianType: Progress NotesFiled: 09/06/2017 3:34 PMNote Text:PERTINENT CARDIAC HISTORYLBBBFamily history premature ASHDTobaccoismCardiomyopat hy - mild nonischemicNear syncopeTobaccoismADHERENCE TO GUIDELINESACE-I or ARB for HF with prior LVEF<40 (NQF 0081) - N/AASA or Plavix for ASHD (NQF 0067) - N/ABeta brown for ASHD with prior MO or prior LVEF<40 (NQF 0070) - N/ABeta brown for HF with prior LVEF<40 (NQF 0083) - N/AACE-I or ARB for ASHD with DM or prior LVEF<40 (NQF 0066) - N/AStatin therapy for ASHD or FHL or DM - N/ABMI documented and plan if >25 (NQF 0421) - lifestyle recommendation formTobacco use screening and referral (NQF 0028) - lifestyle recommendationformRecommen dation for whole food, plant based diet - lifestyle recommendationformCLINICAL IMPRESSION/PLAN:Thuy Delcid has left bundle branch block of unclear etiology. Thisoccurs in the setting of strong family history of premature vasculardisease and at least one family member who had sudden .I recommended that we repeat her Lexiscan nuclear stress test to assess LVfunction as well as the presence of ischemia, given her exerciseintolerance. It addition, she will undergo an event monitor for assessmentof her palpitations and near syncope.Blood work including CBC, TSH, basic profile, magnesium and lipid profilewill be performed.Tentatively I will see her in one month or as needed. She's been advisedto contact me if she has progression of any of the symptoms.Written and verbal health teaching given to patient, patient verbalizesunderstanding and agrees with treatment plan.This note was generated using Iotera voice recognition system, and theremay be some incorrect words, spellings, and punctuation that were notnoted in checking the note before saving.DIAGNOSIS FOR VISIT:Left bundle branch blockNear syncopeHISTORY OF PRESENT ILLNESSThuy Delcid is a 42-year-old woman who is seen at her request forcardiology follow-up. She has had recent onset left bundle branch block ofunclear etiology. This was detected at the time of a preoperative EKG.Evaluation included stress test which showed ejection fraction at lowerlimits normal. She was seen by Dr. Leach in the past. [facility].She reports a strong family history of vascular disease and prematureischemic heart disease. In addition, she had a maternal aunt who diedsuddenly at 22 years of age, of presumably cardiac causes.She's had occasional squeezing in the chest which is mostly with emotionalstress. She's had no exertional chest tightness, but has noticed decreasedexercise tolerance over the last year. She's had no orthopnea or edema.She denies TIAs, amaurosis, claudication. She occasionally notes aflutter in the chest lasting seconds. She's had intermittent episodeswhere she becomes lightheaded, even at rest while sitting. She's hadnear-syncope under these circumstances. She's had no episodes of franksyncope.She smokes. Cholesterol has been borderline high in the past but has notbeen checked for 10 years.ALLERGIES:ALLERGIESN o Known AllergiesCURRENT OUTPATIENT MEDICATIONS:pregabalin (LYRICA) 50 mg capsule Take 75 mg by mouth three times daily.amitriptyline (ELAVIL) 25 mg tabletAspirin-Acetaminophe n-Caffeine (EXCEDRIN) 250-250-65 mg per tablet Take 2tablets by mouth every 6 hours as needed.albuterol HFA (PROAIR HFA) 90 mcg/actuation inhaler Inhale 2 Puffs asinstructed every 4 hours as needed for Wheezing/Shortness of Breath.IBUPROFEN IB ORAL Take 200 mg by mouth five times daily.regadenoson (LEXISCAN) 0.4 mg/5 mL syrg Inject 5 mL intravenously one timeonly for 1 dose. Give IV push over 10 seconds and follow with 5 ml ofnormal salineciprofloxacin HCl (CILOXAN) 0.3 % ophthalmic solution Use 1 Drop in theleft eye four times daily.pregabalin (LYRICA) 75 mg capsule Take 75 mg by mouth twice daily.CELECOXIB (CELEBREX ORAL) Take by mouth.Benzonatate 200 mg capsule Take 200 mg by mouth three times daily asneeded.meloxicam (MOBIC) 15 mg tablet Take 1 tablet by mouth once daily. 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- Cyst of Bartholin's gland bilateral, recurrent- Displacement of cervical intervertebral disc without myelopathy CENTRAL DISC EXTRUSION AT C5/6 WITH MODERATE COMPRESSION OF CORD- Hidradenitis FREQUENT RECURRENCE- Other and unspecified hyperlipidemia- Other forms of migraine- Spinal stenosis in cervical region- Tobacco abuse 11/27/2012- Tobacco use disorderPAST SURGICAL HISTORYProcedure Laterality Date- CERVIX UTERI CONIZA LP ELCTRO EXCI 10/2000 CIS/ANNA MARIE III- CLOSED TREAT WRIST DISLOCATION- LIGATE FALLOPIAN TUBE- PAST SURGICAL HISTORY OF 10/2006 bartholin gland's removed- REMOVAL OF TONSILS,<12 Y/O- SURGERY (GENERAL SURGERY) CONSULT 05/24/2016 right knee surgery- TOOTH ROOT REMOVAL wisdom x 2, other molars x 4-general- VAGINAL HYSTERECTOMY 05/14/2010 Hysterectomy, vaginalFAMILY HISTORYProblem Relation Age of Onset- Diabetes Mother- Hypertension Mother- Heart Mother MO X 2- Stroke Father- Diabetes Maternal Grandmother- OVARIAN CANCER [OTHER] Maternal Aunt X2 PLUS ONE MATERNAL COUSIN- Hypertension Maternal Aunt X 3- Hypertension Maternal Uncle- DIABETIC [OTHER] Maternal Aunt X 2Social History Marital status: Spouse name: candelaria Years of education: 14 Number of children: 2Occupational 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 SHEENT: No change in vision or auditory acuity. Respiratory: Noproductive cough. Cardiac: As noted above. GI: No melena. : Nodysuria. Musculoskeletal: No myalgias. Neurologic: No strokes.Psychiatric: No depression. Endocrine: No diabetes. Hematologic: Noanemia.PHYSICAL EXAMINATION: S/he is alert and in no distressVITAL SIGNS: BP 110/80 Pulse 91 Ht 5' 4 (1.63m) Wt 175 lb 12.8 oz(79.7kg) LMP 04/24/2010 BMI 30.16 kg/(m2).SHEENT: Skin is warm and dry. Pupils are round and reactive. Retinalvessels are grossly unremarkable. No xanthelasmas appreciated. Pharynxis benign. There is no oral cyanosis. Neck: supple. No adenopathy orthyroid enlargement. Chest: Clear to percussion and auscultation.Trachea is midline. Air entry is equal. There is no chest walltenderness. Cardiac: Regular rhythm. S2 is paradoxically split. PMI isnondisplaced. There are no murmurs, rubs or gallops. No click is heard.Carotids are brisk without bruits. JVP is less than 10 cm. Abdomen: Softand nontender. Exam is compromised by obesity. There are no pulsatilemasses or bruits. No liver enlargement. Bowel sounds are active. :Deferred. Extremities: No edema. Pulses are intact and symmetrical. Noclubbing or cyanosis. No femoral bruits. Neurologic: Grossly normalmotor and sensory. S/he is alert and oriented x4. Musculoskeletal: Nojoint deformities.EKG shows sinus rhythm with left bundle branch block. There is nosignificant change.Prior studies included echocardiogram showing normal LV function. There isno significant valve disease.Pharmacologic stress test showed no evidence of ischemia. Ejectionfraction was calculated at 50%.No recent labs are available.Electronically Signed:Ck Gentile MDDecesondra 2016 2:40 PMCC: Baldo Ovalle III MD [facility] Vital Signs Date Time Vital Sign Value Performing Clinician Facility 10-23-2024 16:45-0500 Body temperature 98.1 [degF] No Primary Care Physician [facility] 10-23-2024 16:45-0500 Diastolic blood pressure 84 mm[Hg] No Primary Care Physician [facility] 10-23-2024 16:45-0500 Heart rate 79 /min No Primary Care Physician [facility] 10-23-2024 16:45-0500 Respiratory rate 16 /min No Primary Care Physician [facility] 10-23-2024 16:45-0500 SaO2% (BldA) [Mass fraction] 99 % No Primary Care Physician [facility] 10-23-2024 16:45-0500 Systolic blood pressure 136 mm[Hg] No Primary Care Physician [facility] 10-23-2024 13:22-0500 Body height 160.02 cm No Primary Care Physician [facility] 10-23-2024 13:22-0500 Body mass index (BMI) [Ratio] 33 kg/m2 No Primary Care Physician [facility] 10-23-2024 13:22-0500 Body weight 84.56 kg No Primary Care Physician [facility] 09-24-2022 10:07-0500 Body height 160.02 cm [facility] Work Phone: 09-24-2022 10:07-0500 Body mass index (BMI) [Ratio] 30.1 kg/m2 [facility] Work Phone: 09-24-2022 10:07-0500 Body temperature 97.9 [degF] [facility] Work Phone: 09-24-2022 10:07-0500 Body weight 77.11 kg [facility] Work Phone: 09-24-2022 10:07-0500 Diastolic blood pressure 71 mm[Hg] [facility] Work Phone: 09-24-2022 10:07-0500 Heart rate 95 /min [facility] Work Phone: 09-24-2022 10:07-0500 Respiratory rate 17 /min [facility] Work Phone: 09-24-2022 10:07-0500 SaO2% (BldA) [Mass fraction] 99 % [facility] Work Phone: 09-24-2022 10:07-0500 Systolic blood pressure 130 mm[Hg] [facility] Work Phone: 09-21-2022 19:39-0500 Body temperature 97.59 [degF] Mounika Walker [employer] TYPE ONE.DIRECTOR OF MANAGED CARE Work Phone: [facility] 09-21-2022 19:39-0500 Body weight 79.38 kg Mounika Walker [employer]FIGHTER TYPE ONE.DIRECTOR OF MANAGED CARE Work Phone: [facility] 09-21-2022 19:39-0500 Diastolic blood pressure 88 mm[Hg] Mounika Walker FIREFIGHTER TYPE ONE.DIRECTOR OF MANAGED CARE Work Phone: [facility] 09-21-2022 19:39-0500 Heart rate 88 /min Mounika Walker [employer]FIGH[employer] TYPE ONE.DIRECTOR OF MANAGED CARE Work Phone: [facility] 09-21-2022 19:39-0500 Respiratory rate 16 /min Mounika Wlaker [employer]FIGH[employer] TYPE ONE.DIRECTOR OF MANAGED CARE Work Phone: [facility] 09-21-2022 19:39-0500 SaO2% (BldA) [Mass fraction] 100 % Mounika Walker [employer]FIG[employer] TYPE ONE.DIRECTOR OF MANAGED CARE Work Phone: [facility] 09-21-2022 19:39-0500 Systolic blood pressure 152 mm[Hg] Mounika Walker [employer]FIGH[employer] TYPE ONE.DIRECTOR OF MANAGED CARE Work Phone: [facility] Encounters Encounter Date Encounter Type Care Provider Facility Start: 02-22-2025 ambulatory Candelaria Nichole lity:[facility] Start: 12-28-2024 End: 12-28-2024 ambulatory Mandie Evette VSC Facility:[facility] Start: 11-16-2024 End: 11-16-2024 ambulatory No Primary Care Physician [facility] Work Phone: Start: 11-16-2024 End: 11-16-2024 Patient encounter procedure Mandie Alas DO -[facility] Work Phone: Start: 11-16-2024 End: 11-16-2024 ambulatory Mandie Alas [facility] Facility:[facility] Start: 11-05-2024 End: 11-05-2024 Patient encounter procedure Mandie Alas DO -[place] [place] Work Phone: Start: 11-05-2024 End: 11-05-2024 ambulatory Mandie Alas [facility] Facility:[facility] Start: 10-23-2024 End: 10-23-2024 Emergency department patient visit Dr. Michael Godinez MD -Emergency Department Work Phone: Start: 09-24-2022 End: 09-24-2022 Emergency department patient visit [facility]-Emergency Department Start: 09-21-2022 End: 09-21-2022 ambulatory Facility:[facility] Start: 09-21-2022 End: 09-21-2022 Patient encounter procedure Mounika Katia [employer] ONE.DIRECTOR OF MANAGED CARE Work Phone: [facility] Care Comment on above: Abscess of left louise obe (Primary Dx) Start: 11-25-2017 Ambulatory CK GENTILE Facility :[facility] Start: 11-02-2017 End: 11-02-2017 Ambulatory [facility] Start: 10-04-2017 End: 10-04-2017 Ambulatory [facility] Start: 09-09-2017 Ambulatory [facility] Start: 09-02-2017 End: 09-02-2017 [facility] Procedures Date Procedure Procedure Detail Performing Clinician Start: 11-16-2024 Screening mammography N o Primary Care Physician Start: 02-25-2017 Mammography Mounika Yi ford [employer] TYPE ONE.DIRECTOR OF MANAGED CARE Work Phone: Plan of Treatment Date Care Activity Detail Author Start: 10-23-2024 [facility] Start: 09-22-2022 LIPID SCREEN LIPID SCREEN [facility] Start: 09-12-2022 DEPRESSION ASSESSMENT DEPRESSION ASSESSMENT [facility] Start: 05-13-2022 Influenza vaccination INFLUENZA (#1) [facility] Start: 10-04-2020 DIABETES SCREEN DIABETES SCREEN [facility] Start: 01-23-2020 COLOGUARD (FIT-DNA) COLOGUARD (FIT-DNA) [facility] Start: 01-23-2020 Colonoscopy COLONOSCOPY [facility] Start: 01-23-2020 COLORECTAL CANCER SCREENING COLORECTAL CANCER SCREENING [facility] Start: 01-23-[address] COLONOGRAPHY [facility] Start: 01-23-2020 FECAL OCCULT BLOOD FECAL OCCULT BLOOD [facility] Start: 01-23-2020 SIGMOIDOSCOPY SIGMOIDOSCOPY [facility] Start: 02-25-2018 Mammography MAMMOGRAM [facility] Start: 01-14-2015 HPV TESTING HPV TESTING [facility] Start: 01-14-2015 PAP TESTING PAP TESTING [facility] Start: 1994 Urine microalbumin profile DTAP,TDAP,TD (1 - Tdap) [facility] Start: 1993 HEPATITIS C SCREENING HEPATITIS C SCREENING [facility] Start: 1993 HIV SCREENING HIV SCREENING [facility] Start: 1975 COVID-19 VACCINE (#1) COVID-19 VACCINE (#1) [facility] Start: 1975 HEPATITIS B (1 of 3 - 3-dose series) HEPATITIS B (1 of 3 - 3-dose series) [facility] Patient Education [facility] Work Phone: Patient referral [facility] Work Phone: Payers Date Payer Category Payer Self-pay [id number] 2024 Unknown [id number] 2017 Unknown [id number] Medicaid [id number] Unknown [id number] [id number] Unknown [id number] 2.16.8 [id number] Unknown [id number] 2.16.8 [id number] Unknown [id number] 2.16.8 [id number] Unknown [id number] 2.16.8 [id number] Social History Date Type Detail Facility Start: 09-21-2022 End: 10-23-2024 Tobacco smoking status NHIS Ex-smoker [facility] Work Phone: History of tobacco use Current smoker [facility] Work Phone: History of tobacco use Cigarette Smoker [facility] Work Phone: Start: 09-21-2022 Cigarettes smoked current (pack per day) - Reported 1 [facility] Start: 09-21-2022 Tobacco use and exposure Smokeless tobacco non-user [facility] Work Phone: Start: 09-21-2022 Alcohol intake Current drinke r of alcohol (finding) [facility] Start: 1975 Sex Assigned At Not on file [facility] Start: 09-24-2022 [facility] Work Phone: Start: 1975 Sex Assigned At Female [facility] Start: 11-27-2024 Sex Female (finding) [facility] [place] Date Assessment Result Facility 10-23-2024 Cognitive function Level Of Cons ciousness Awake;Alert;Appropriate;Follow s Commands [facility] Work Phone: Progress note 09-21-2022 Note Date & Type Note Facility 09-21-2022 Note HNO ID: [id number] Author: Mounika Walker APRN.DIRECTOR OF MANAGED CARE Service: ? Author Type: Nurse Practitioner Type: Progress Notes Filed: 09/21/2022 7:54 PM Note Text: This note was created using NoteWriter. Subjective Thuy Michael is a 47 year old female. 47 year old female with PMH headaches presents for complaints of abscess. Acute onset 2 days ago States started as a hard pea sized tender bump Has progressed +erythema surrounding Endorses history of same in past, went to ED and area was lanced States using warm compresses Denies drainage. Denies fever or chills. The history is provided by the patient. No supervisor modern languages was used. Abscess This is a new problem. The current episode started in the past 7 days. The problem occurs constantly. The problem has been gradually worsening. Pertinent negatives include no abdominal pain, anorexia, arthralgias, chest pain, chills, congestion, coughing, fatigue, fever, headaches, myalgias, nausea, neck pain, rash, sore throat, swollen glands, urinary symptoms, vertigo, visual change, vomiting or weakness. Exacerbated by: touching. Treatments tried: warm compresses. The treatment provided no relief. 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 Hidradenitis FREQUENT RECURRENCE Other and unspecified hyperlipidemia Other forms of migraine Spinal stenosis in cervical region Tobacco abuse 11/27/2012 Tobacco use disorder PAST SURGICAL HISTORY Procedure Laterality Date CLTX RDCRPL/INTERCARPL DISLC /> BONES W/MANJ CONIZATION CERVIX W/WO DANDC RPR ELTRD EXC 10/2000 CIS/ANNA MARIE III LIG/TRNSXJ FLP TUBE ABDL/VAG APPR UNI/BI PAST SURGICAL HISTORY OF 10/2006 bartholin gland's removed REMOVAL OF RESIDUAL TOOTH ROOTS (CUTTING PROCEDURE) wisdom x 2, other molars x 4-general SURGERY (GENERAL SURGERY) CONSULT 05/24/2016 right knee surgery TONSILLECTOMY PRIMARY/SECONDARY VAGINAL HYSTERECTOMY UTERUS 250 GM/< 05/14/2010 Hysterectomy, vaginal ALLERGIES Patient has no known allergies. MEDICATIONS amitriptyline (ELAVIL) 25 mg tablet doxycycline monohydrate 100 mg tablet Take 1 tablet by mouth twice daily for 7 days. benzonatate (TESSALON PERLES) 100 mg capsule Take 2 capsules by mouth three times daily as needed. (Patient not taking: Reported on 09/21/2022) albuterol HFA (PROAIR HFA) 90 mcg/actuation inhaler Inhale 2 Puffs as instructed every 6 hours as needed. (Patient not taking: Reported on 09/21/2022) traZODone (DESYREL) 100 mg tablet TAKE 1 TABLET BY MOUTH EVERYDAY AT BEDTIME (Patient not taking: Reported on 09/21/2022) buPROPion XL (WELLBUTRIN XL) 150 mg 24 hr tablet TAKE 1 TABLET BY MOUTH EVERY DAY IN THE MORNING (Patient not taking: Reported on 09/21/2022) folic acid 1 mg tablet Take 1 mg by mouth once daily. (Patient not taking: Reported on 09/21/2022) DULoxetine (CYMBALTA) 60 mg capsule Take 60 mg by mouth once daily. (Patient not taking: Reported on 09/21/2022) Benzonatate 200 mg capsule Take 1 capsule by mouth three times daily as needed. (Patient not taking: Reported on 10/17/2018 ) atorvastatin (LIPITOR) 20 mg tablet Take 1 tablet by mouth once daily. (Patient not taking: Reported on 07/03/2018 ) pregabalin (LYRICA) 50 mg capsule Take 75 mg by mouth three times daily. (Patient not taking: Reported on 09/21/2022) pregabalin (LYRICA) 75 mg capsule Take 75 mg by mouth twice daily. CELECOXIB (CELEBREX ORAL) Take by mouth. Dksfdre-Mxxykrprinnnj-Cziefbxh 250-250-65 mg per tablet Take 2 tablets by mouth every 6 hours as needed. (Patient not taking: Reported on 09/21/2022) meloxicam (MOBIC) 15 mg tablet Take 1 tablet by mouth once daily. Take with food. (Patient not taking: Reported on 07/03/2018 ) loratadine (CLARITIN) 10 mg tablet Take 1 tablet by mouth once daily. (Patient not taking: Reported on 07/11/2019 ) IBUPROFEN IB ORAL Take 200 mg by mouth five times daily. FAMILY HISTORY Problem Relation Age of Onset Diabetes Mother Hypertension Mother Heart Mother MO X 2 Stroke Father Diabetes Maternal Grandmother other (OVARIAN CANCER) Maternal Aunt X2 PLUS ONE MATERNAL COUSIN Hypertension Maternal Aunt X 3 Hypertension Maternal Uncle other (DIABETIC) Maternal Aunt X 2 Social History Tobacco Use Smoking status: Former Packs/day: 1.00 Years: 11.00 Pack years: 11.00 Types: Cigarettes Smokeless tobacco: Never Substance Use Topics Alcohol use: Yes Drug use: No Review of Systems Constitutional: Negative for chills, fatigue and fever. HENT: Negative for congestion and sore throat. External ear pain Eyes: Negative for discharge and itching. Respiratory: Negative for apnea, cough, choking and chest tightness. Cardiovascular: (more content not included)... [facility] History of Present illness Narrative 09-21-2022 Mounika Walker APRN.[facility] - 09/21/2022 7:36 PM EST Note Date & Type Note Facility 09-21-2022 History of Presen t illness Narrative This note was created using [employer]. Subjective Thuy Michael is a 47 year old female. 47 year old female with PMH headaches presents for complaints of abscess. Acute onset 2 days ago States started as a hard pea sized tender bump Has progressed +erythema surrounding Endorses history of same in past, went to ED and area was lanced States using warm compresses Denies drainage. Denies fever or chills. The history is provided by the patient. No supervisor modern languages was used. Abscess This is a new problem. The current episode started in the past 7 days. The problem occurs constantly. The problem has been gradually worsening. Pertinent negatives include no abdominal pain, anorexia, arthralgias, chest pain, chills, congestion, coughing, fatigue, fever, headaches, myalgias, nausea, neck pain, rash, sore throat, swollen glands, urinary symptoms, vertigo, visual change, vomiting or weakness. Exacerbated by: touching. Treatments tried: warm compresses. The treatment provided no relief. 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 Hidradenitis FREQUENT RECURRENCE Other and unspecified hyperlipidemia Other forms of migraine Spinal stenosis in cervical region Tobacco abuse 11/27/2012 Tobacco use disorder PAST SURGICAL HISTORY Procedure Laterality Date CLTX RDCRPL/INTERCARPL DISLC BONES W/MANJ CONIZATION CERVIX W/WO D&C RPR ELTRD EXC 10/2000 CIS/ANNA MARIE III LIG/TRNSXJ FLP TUBE ABDL/VAG APPR UNI/BI PAST SURGICAL HISTORY OF 10/2006 bartholin gland's removed REMOVAL OF RESIDUAL TOOTH ROOTS (CUTTING PROCEDURE) wisdom x 2, other molars x 4-general SURGERY (GENERAL SURGERY) CONSULT 05/24/2016 right knee surgery TONSILLECTOMY PRIMARY/SECONDARY <AGE 12 VAGINAL HYSTERECTOMY UTERUS 250 GM/< 05/14/2010 Hysterectomy, vaginal ALLERGIES Patient has no known allergies. MEDICATIONS amitriptyline (ELAVIL) 25 mg tablet doxycycline monohydrate 100 mg tablet Take 1 tablet by mouth twice daily for 7 days. benzonatate (TESSALON PERLES) 100 mg capsule Take 2 capsules by mouth three times daily as needed. (Patient not taking: Reported on 09/21/2022) albuterol HFA (PROAIR HFA) 90 mcg/actuation inhaler Inhale 2 Puffs as instructed every 6 hours as needed. (Patient not taking: Reported on 09/21/2022) traZODone (DESYREL) 100 mg tablet TAKE 1 TABLET BY MOUTH EVERYDAY AT BEDTIME (Patient not taking: Reported on 09/21/2022) buPROPion XL (WELLBUTRIN XL) 150 mg 24 hr tablet TAKE 1 TABLET BY MOUTH EVERY DAY IN THE MORNING (Patient not taking: Reported on 09/21/2022) folic acid 1 mg tablet Take 1 mg by mouth once daily. (Patient not taking: Reported on 09/21/2022) DULoxetine (CYMBALTA) 60 mg capsule Take 60 mg by mouth once daily. (Patient not taking: Reported on 09/21/2022) Benzonatate 200 mg capsule Take 1 capsule by mouth three times daily as needed. (Patient not taking: Reported on 10/17/2018 ) atorvastatin (LIPITOR) 20 mg tablet Take 1 tablet by mouth once daily. (Patient not taking: Reported on 07/03/2018 ) pregabalin (LYRICA) 50 mg capsule Take 75 mg by mouth three times daily. (Patient not taking: Reported on 09/21/2022) pregabalin (LYRICA) 75 mg capsule Take 75 mg by mouth twice daily. CELECOXIB (CELEBREX ORAL) Take by mouth. Bevadrr-Frrrdeqdueldi-Qpwdurlw 250-250-65 mg per tablet Take 2 tablets by mouth every 6 hours as needed. (Patient not taking: Reported on 09/21/2022) meloxicam (MOBIC) 15 mg tablet Take 1 tablet by mouth once daily. Take with food. (Patient not taking: Reported on 07/03/2018 ) loratadine (CLARITIN) 10 mg tablet Take 1 tablet by mouth once daily. (Patient not taking: Reported on 07/11/2019 ) IBUPROFEN IB ORAL Take 200 mg by mouth five times daily. FAMILY HISTORY Problem Relation Age of Onset Diabetes Mother Hypertension Mother Heart Mother MO X 2 Stroke Father Diabetes Maternal Grandmother other (OVARIAN CANCER) Maternal Aunt X2 PLUS ONE MATERNAL COUSIN Hypertension Maternal Aunt X 3 Hypertension Maternal Uncle other (DIABETIC) Maternal Aunt X 2 Social History Tobacco Use Smoking status: Former Packs/day: 1.00 Years: 11.00 Pack years: 11.00 Types: Cigarettes Smokeless tobacco: Never Substance Use Topics Alcohol use: Yes Drug use: No Review of Systems Constitutional: Negative for chills, fatigue and fever. HENT: Negative for congestion and sore throat. External ear pain Eyes: Negative for discharge and itching. Respiratory: Negative for apnea, cough, choking and chest tightness. Cardiovascular: Negative for chest pain, palpitations and leg swelling. Gastrointestinal: Negative for abdominal pain, anorexia, nausea and vomiting. Musculoskeletal: Negative for arthralgias, myalgias and neck pain. Skin: Negative for color change, pallor and rash. Allergic/Immunologic: Negative for environmental allergies, food allergies and immunocompromised state. Neurological: Negative for dizziness, vertigo, facial asymmetry, weakness and headaches. Hematological: Negative for adenopathy. Does not bruise/bleed easily. Psychiatric/Behavioral: Negative for agitation and behavioral problems. Objective LMP 04/24/2010 BP 152/88 Pulse 88 Temp 36.4 C (97.6 F) Resp 16 Wt 79.4 kg (175 lb) LMP 04/24/2010 SpO2 100% BMI 30.04 kg/m Physical Exam Vitals and nursing note reviewed. Constitutional: General: She is not in acute distress. Appearance: Normal appearance. She is normal weight. She is not ill-appearing, toxic-appearing or diaphoretic. HENT: Head: Normocephalic and atraumatic. Right Ear: Ear canal and external ear normal. Left Ear: Ear canal and external ear normal. Ears: Comments: Left external posterior ear with 2 cm non indurate non fluctuant abscess with erythematic base. No red streaking NO drainage. No crepitus Nose: Nose normal. No congestion or rhinorrhea. Mouth/Throat: Mouth: Mucous membranes are moist. Pharynx: No oropharyngeal exudate or posterior oropharyngeal erythema. Eyes: General: Right eye: No discharge. Left eye: No discharge. Extraocular Movements: Extraocular movements intact. Conjunctiva/sclera: Conjunctivae normal. Pupils: Pupils are equal, round, and reactive to light. Cardiovascular: Rate and Rhythm: Normal rate and regular rhythm. Pulses: Normal pulses. Heart sounds: Normal heart sounds. No murmur heard. No friction rub. Pulmonary: Effort: Pulmonary effort is normal. No respiratory distress. Breath sounds: Normal breath sounds. No stridor. No wheezing, rhonchi or rales. Chest: Chest wall: No tenderness. Abdominal: General: Abdomen is flat. There is no distension. Palpations: Abdomen is soft. There is no mass. Tenderness: There is no abdominal tenderness. There is no right CVA tenderness, left CVA tenderness, guarding or rebound. Hernia: No hernia is present. Musculoskeletal: General: No swelling, tenderness, deformity or signs of injury. Normal range of motion. Cervical back: Normal range of motion and neck supple. No rigidity. Right lower leg: No edema. Left lower leg: No edema. Lymphadenopathy: Cervical: No cervical adenopathy. Skin: General: Skin is warm and dry. Coloration: Skin is not jaundiced or pale. Findings: No bruising, erythema, lesion or rash. Neurological: General: No focal deficit present. Mental Status: She is alert and oriented to person, place, and time. Cranial Nerves: No cranial nerve deficit. Sensory: No sensory deficit. Motor: No weakness. Coordination: Coordination normal. Gait: Gait normal. Psychiatric: Mood and Affect: Mood normal. Behavior: Behavior normal. Thought Content: Thought content normal. Judgment: Judgment normal. Assessment and Plan ASSESSMENT/PLAN: 1. Abscess of left earlobe - ICD9: 380.10, ICD10: H60.02 X 2 days History of same. Not clinically indicated for for I and D. - CONSULT TO DERMATOLOGY-if symptoms worsen. RX Doxycyline Warm compresses. Follow up PRN Mounika Walker APRN.DIRECTOR OF MANAGED CARE documented in this encounter [facility] Evaluation note Note Date & Type Note Facility Evaluation note Diagnosis Abscess of left earlobe- Primary documented in this encounter [facility] Evaluation note Note Date & Type Note Facility Evaluation note No assessment information availa ble [facility] Work Phone: Reason for referral (narrative) Note Date & Type Note Facility Reason for referral (narrative) No reason for referral information available [facility] Work Phone: Summary Purpose Family History No Family History Records FoundNo Family History Records FoundNo Family History Records FoundNo Family History Records Found Advance Directives No Advanced Directives Records Found Advance Directive Response Recorded Date/ Time Advance Directives No October 18, 2017 8:20am Living Will No September 24 10:49am Power of Department Traffic Freight Router No September 24, 2022 10:49am Advance Directive Response Recorded Date/ Time Living Will No October 23 5:08pm Power of Department Traffic Freight Router No October 23, 2024 5:08pm Advance Directives No October 18, 2017 9:20am Reason for Referral Specialty Diagnoses / Procedures Referred By Monisha alvarado Referred To Contact Dermatology Diagnoses Abscess of left earlobe Procedures CONSULT TO DERMATOLOGY Mounkia Walker APRN.DIRECTOR OF MANAGED CARE [address] [place] [address] Referral ID Status Reason Start Date Expiration Date Visits Requested Visits Authorized [id number] Ref Not Required PCP Requested Referral 09/21/2022 09/21/2023 1 1 Chief Complaint and Reason for Visit Chief Complaint ABSCESS Chief Complaint Admit Date HTN October 23, 2024 1:21pm SCREENING November 16, 2024 12:2 6pm Additional Source Comments INFORMATION SOURCE (unrecogn ized section and content) DATE CREATED AUTHOR 03/03/2018 [facility] DATE CREATED AUTHOR AUTHOR'S ORGANIZ ATION 03/03/2018 [facility] DATE CREATED AUTHOR AUTHOR'S ORGANIZ ATION 09/22/2022 [facility] DATE CREATED AUTHOR AUTHOR'S ORGANIZ ATION 02/11/2025 [facility] Source Comments (unrecognize d section and content) In the event this informatio n is protected by the Federal Confidentiality of Alcohol and Drug Abuse Patient Records regulations: The Federal rules restrict any use of the information to criminally investigate or prosecute any alcohol or drug abuse patient.[facility] Reason for Visit (unrecogniz ed section and content) Reason Comments Cyst behind left ear x 2 days Goals (unrecognized section and content) Goals may be documented in a n alternate sectionGoals may be documented in an alternate section Care Teams (unrecognized sec tion and content) Team Status: Active Member Role Status Dates Mandie KIM, DO Primary Care Provider Active Team Status: Inactive Member Role Status Dates No Primary Care Physician Primary Care Provider Active Start: October 23, 2024 End: October 23, 2024 Dr. Michael Godinez MD Attending Provider Active Sta rt: October 23, 2024 End: October 23, 2024 Dr. Michael Godinez MD Emergency Provider Active Sta rt: October 23, 2024 End: October 23, 2024 Team Status: Inactive Member Role Status Dates Mandie Alas VSC, DO Primary Care Provider Active Start: November 05, 2024 End: November 05, 2024 Mandiemeaghan Garciaer VSC, DO Attending Provider Active Start: November 05, 2024 End: November 05, 2024 Mandie Evette VSC, DO Referring Provider Active Start: November 05, 2024 End: November 05, 2024 Team Status: Inactive Member Role Status Dates Mandie Alas VSC, DO Primary Care Provider Active Start: November 16, 2024 End: November 16, 2024 Mandie Evette VSC, DO Attending Provider Active Start: November 16, 2024 End: November 16, 2024 Mandie Evette VSC, DO Referring Provider Active Start: November 16, 2024 End: November 16, 2024 FOR RECORDS PERTAINING TO PATIENTS WHO ARE OR HAVE BEEN ENROLLED IN A CHEMICAL DEPENDENCY/SUBSTANCEABUSE PROGRAM, SOME INFORMATION MAY BE OMITTED. This clinical summary was aggregated from multiple sources. Caution should be exercised in using it in the provision of clinical care. This summary normalizes information from multiple sources, and as a consequence, information in this document may materially change the coding, format and clinical context of patient data. In addition, data may be omitted in some cases. CLINICAL DECISIONS SHOULD BE BASED ON THE PRIMARY CLINICAL RECORDS. [employer] provides no warranty or guarantee of the accuracy or completeness of information in this document.
[2025-02-22] MEDS: Lactated Ringers 1,000 ML 15 ML IV (07:49)
--- NOTE | 2025-02-22 08:28 | HP.PCM_ITS ---
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 Lester Pendleton MD) Environmental allergies Left bundle branch block Bartholin's gland abscess Surgical History (Updated 12/28/24 @ 14:19 by Odalys Moreland) S/P right heart catheterization S/P knee surgery History of surgical removal of Bartholin?s gland cyst H/O tubal ligation Hx of tonsillectomy History of hysterectomy Family History (Updated 12/28/24 @ 14:20 by Odalys Moreland) Mother Asthma Bleeding disorder CVA (cerebral vascular accident)Father Cancer prostate CVA (cerebral vascular accident)Sister Thyroid disorder Social History (Updated 12/28/24 @ 14:20 by Odalys Moreland) Smoking Status: Former smoker alcohol intake: current HPI HPI HPI: Patient is a 49-year-old female here for colonoscopy for screening purposes. She denies abdominal pain. She does have blood in her stool but she thinks this is due to hemorrhoids. She says that it used to happen sporadically and now it is happening every time she goes to the bathroom. She has never had a colonoscopy. ROS General General: Yes weight change and fatigue; No appetite, colon cancer, breast cancer or weakness HEENT HEENT: No difficulty swallowing, eye injury, eye surgery, swollen glands or hoarseness Endo Endocrine: No thyroid disease, diabetes mellitus, thyroid cancer, Hair loss, heat intolerance or cold intolerance Skin Skin: No rash or changing moles Breast Breast: No left breast lump, right breast lump, nipple discharge, breast pain, abnormal mammogram, abnormal US or breast enlargement Musc Musculoskeletal: Yes arthritis; No back problems, rheumatoid arthritis, gout or joint pain Cardio Cardiovascular: Yes high blood pressure; No murmur, pacemaker, heart disease, atrial fibrillation, heart attack, heart stent, palpitations, shortness of breath with exertion or chest pain Psych Psychiatric: Yes depression and anxiety; No hearing voices Resp Respiratory: Yes shortness of breath, No sleep apnea, No cough, No COPD, No asthma, No emphysema and No wheezing Gastro Gastrointestinal: No abdominal pain, No nausea or vomiting, Yes diarrhea, Yes constipation, No blood in stool, No acid reflux, Yes hemorrhoids, No ulcers, No gallbladder problem and No black,tarry stools Naveed Hematologic: No blood thinners, No blood disorders, No bleeding, No anemia and No blood clots Neuro Neurologic: No system reviewed and no additional complaints, except as documented, No as per HPI, No abnormal gait, No abnormal hearing, No abnormal movements, No abnormal speech, No behavioral changes, No burning sensations, No confusion, No convulsions, No disequilibrium, No dizziness, No localized weakness, No frequent falls, No headache(s), No lack of coordination, No loss of vision, No memory loss, Yes numbness, No other visual disturbances, No radicular pain, No restless legs, No sensory deficit, No syncope, Yes tingling, No tremor(s), No weakness and No other Exam Const General: cooperative Orientation: alert and oriented x3 HENMT Head: normal to inspection Neck Neck: normal visual inspection and full ROM Chest Chest palpation & inspection: normal inspection of the chest Resp Effort & Inspection: normal respiratory effort Auscultation: clear to auscultation bilaterally Cardio Rate: regular rate Rhythm: regular rhythm GI Inspection: non-distended Palpation: soft and nontender Skin General: no rashes or lesions noted Neuro General: patient alert and patient oriented x3 Extrem General: full ROM Psych Appearance: grossly normal Mental Status: mental status grossly normal Assessment and Plan Assessment and Plan (1) Screen for colon cancer: Status: Acute Plan: I explained endoscopy in detail to the patient. I explained the risks including but not limited to stroke or heart attack with anesthesia, perforation of the GI tract, bleeding, infection. I explained that any of these could necessitate further emergency surgery. The patient understands and all questions were answered sufficiently. The patient wishes to proceed with procedure. Lester Pendleton MD Pager: [facility] [address] [place] [address] [address] [place] [address] Office: I have examined the patient and the H&P has been reviewed. There are no clinical changes since date of exam.
--- NOTE | 2025-02-22 08:30 | COLBX_PTH ---
PATIENT: THUY LOYOLA LOC: EN U#:[id number] AGE/SX: 50/F ROOM: RE02/22/[address]: Dr. Lester Pendleton MD : 1975 BED: DIS: 02/22/2025 SPEC #: [id number] RECD: 02/22/25 12:15 STATUS: JANNET MARIE #: [id number] MARIANNE: 02/22/25 08:[address]: Lester Pendleton DEPT: SURGICAL PATHOLOGY RECD BY: Migel Chavez ENTERED: 02/22/25 13:25 SP TYPE: COLON BX OTHR DR: Mandie Alas, [facility], DO Tissues: A - Descending colon Procedures: Surgery Specimen Level IV HEADER OPERATION: Colonoscopy and polypectomy and placement of clips PRE-OP DIAGNOSIS: Screening TISSUE SUBMITTED: A- Descending colon polyp MICROSCOPIC DIAGNOSIS A. Descending, colon, polyp, biopsy: Tubulovillous adenoma. MICROSCOPIC DESCRIPTION Slides are reviewed. GROSS DESCRIPTION A.? Received in formalin labeled with the patient's name and date of . Designated as descending colon polyp is a 1.3 x 0.8 x 0.7 cm rodriguez-red granular polypoid tissue fragment with an attached, 0.8 cm in length by 0.5 cm in diameter stock.? The resection margin is inked black, the specimen is bisected and entirely submitted in 1 cassette. [place] 02/22/2025 CPT:94897
--- NOTE | 2025-02-22 09:16 | OP.COLON_ITS ---
Patient Name: Abbey Michael Procedure Date: 02/22/2025 8:35 AM Date of : 1975 Age: 50 Procedure: Colonoscopy Indications: Screening for colorectal malignant neoplasm Providers: Lester Pendleton MD Referring MD: Mandie Alas Do Medicines: Propofol per Anesthesia Patient Profile: This is a 50 year old female. Refer to note in patient chart for documentation of history and physical. Last Colonoscopy: none. The patient's first colonoscopy is today. Complications: No immediate complications. Estimated blood loss: Minimal. Procedure: Pre-Anesthesia Assessment: - Prior to the procedure, a History and Physical was performed, and patient medications and allergies were reviewed. The patient's tolerance of previous anesthesia was also reviewed. The risks and benefits of the procedure and the sedation options and risks were discussed with the patient. All questions were answered, and informed consent was obtained. Prior Anticoagulants: The patient has taken no anticoagulant or antiplatelet agents. After reviewing the risks and benefits, the patient was deemed in satisfactory condition to undergo the procedure. After I obtained informed consent, the scope was passed under direct vision. Throughout the procedure, the patient's blood pressure, pulse, and oxygen saturations were monitored continuously. The Colonoscope was introduced through the anus and advanced to the cecum, identified by appendiceal orifice and ileocecal valve. The colonoscopy was performed without difficulty. The patient tolerated the procedure well. The quality of the bowel preparation was good. The ileocecal valve, appendiceal orifice, and rectum were photographed. Scope In: 8:44:40 AM Scope Withdrawal Time 0 hours 22 minutes 13 seconds Scope Out: 9:13:37 AM Total Procedure Duration Time 0 hours 28 minutes 57 seconds Findings: A large polyp was found in the descending colon. The polyp was pedunculated. The polyp was removed with a hot snare. Resection and retrieval were complete. To prevent bleeding after the polypectomy, five hemostatic clips were successfully placed. There was no bleeding at the end of the procedure. The exam was otherwise without abnormality on direct and retroflexion views. Impression: - One large polyp in the descending colon, removed with a hot snare. Resected and retrieved. Clips were placed. - The examination was otherwise normal on direct and retroflexion views. Recommendation: - Discharge patient to home. - Resume previous diet. - Continue present medications. - Await pathology results. - Repeat colonoscopy in 3 years for surveillance. Procedure Code(s): --- Professional --- 93855, Colonoscopy, flexible; with removal of tumor(s), polyp(s), or other lesion(s) by snare technique Diagnosis Code(s): --- Professional --- Z12.11, Encounter for screening for malignant neoplasm of colon D12.4, Benign neoplasm of descending colon CPT copyright 2021 [employer]. All rights reserved. The codes documented in this report are preliminary and upon operator specialist communications review may be revised to meet current compliance requirements. Lester Pendleton MD 02/22/2025 9:16:32 AM This report has been signed electronically. Number of Addenda: 0 Note Initiated On: 02/22/2025 8:35 AM
--- NOTE | 2025-02-22 09:17 | OP.CCLET_ITS ---
02/22/2025 Mandie Alas Do Re : Colonoscopy procedure for Abbey Michael Dear Evette This procedure was performed on Saturday, February 22, 2025. My impressions and recommendations are as follows: Impressions : - One large polyp in the descending colon, removed with a hot snare. Resected and retrieved. Clips were placed. - The examination was otherwise normal on direct and retroflexion views. Recommendations : - Discharge patient to home. - Resume previous diet. - Continue present medications. - Await pathology results. - Repeat colonoscopy in 3 years for surveillance. My findings are described in the full procedure note, which is enclosed. If I can be of further assistance, please feel free to contact me at Doctor phone number(s): , Work: . Sincerely, Lester Pendleton MD 02/22/2025 9:16:32 AM This report has been signed electronically.
--- NOTE | 2025-02-22 09:29 | PCM.POST.ANE ---
Anesthesia: Postop Eval I Current Vital Signs Temperature: 97 F Pulse Rate: 67 Blood Pressure: 93/75 Respiratory Rate: 16 Pulse Ox: 100 Oxygen Delivery Method: Room Air Assessment Airway patent: Yes Spontaneous unlabored respirations: Yes Mental status: Awake and Calm nausea: No Vomiting: No Anesthesia Complication: No Fluid Hydration Crystalloid volume administer (ml): 700 Total IV fluid infused: 700 Progress Note Anesthesia document: Postop Eval 1 completed: Yes
--- NOTE | 2025-02-22 11:30 | PCM.POSTANE2 ---
Anesthesia Postop Eval I Sum Postop Eval Completion status Anesthesia document: Postop Eval 1 completed: Yes Anesthesia Postop Eval I Summary Anesthesia Postop Eval I Summary: Anesthesia Postop Eval I: Assessment Summary Airway patent Yes 02/22/25 09:30 [email or web address] Spontaneous unlabored Yes 02/22/25 09:30 [email or web address] respirations Mental status Awake,Calm 02/22/25 09:30 [email or web address] nausea No 02/22/25 09:30 [email or web address] Vomiting No 02/22/25 09:30 [email or web address] Anesthesia Postop Eval I: Fluid Summary Crystalloid volume administer 700 02/22/25 09:30 [email or web address] (ml) Colloids volume administered ( ml) Blood Product volume administered (ml) Total IV fluid infused 700 02/22/25 09:30 [email or web address] Anesthesia Postop Eval I: Summary Notes Anesthesia Complication No 02/22/25 09:30 [email or web address] Anesthesia Complication Comment: Post-operative progress note Anesthesia: Postop Eval II Evaluation Mental status: Awake Pain Level: 0 nausea: No Vomiting: No
== END 2025-02-22 10:09 | disposition home or self-care (01) ==
LOC: EN 07:14 → AC 07:16
PROVIDERS: PCP Family Medicine; Referring Provider Family Medicine; Visit Provider Surgery
PROC: 0DJD8ZZ Inspection of Lower Intestinal Tract, Via Natural or Artificial Opening Endoscopic (ICD-10-PCS; CPT 45378; principal; 2025-02-22 08:25)
DX: Z12.11 Encounter for screening for malignant neoplasm of colon (principal); Z87.891 Personal history of nicotine dependence; I10 Essential (primary) hypertension; D12.4 Benign neoplasm of descending colon
CPT/HCPCS: 45385; 88305; J2405